=== PATIENT | female | born 1965 | race Caucasian/White ===

== ENCOUNTER → 2017-03-03 | Outpatient (CLI) | payer BC ==
--- NOTE | 2017-03-03 18:16 | RADIOLOGY REPORT (SQ) ---
EXAM DESCRIPTION: CHEST PA/LAT COMPLETED DATE/TIME: 03/03/2017 6:05 pm REASON FOR STUDY: Hypo-osmolality and hyponatremia COMPARISON: None. EXAM PARAMETERS: NUMBER OF VIEWS: two views TECHNIQUE: Digital Frontal and Lateral radiographic views of the chest acquired. RADIATION DOSE: NA LIMITATIONS: none FINDINGS: LUNGS AND PLEURA: Opacity and volume loss in the right upper lobe. Left lung clear. MEDIASTINUM AND HILAR STRUCTURES: Right hilar mass and right paratracheal adenopathy. HEART AND VASCULAR STRUCTURES: Heart normal size. No evidence for failure. BONES: No acute findings. HARDWARE: None in the chest. OTHER: No other significant finding. IMPRESSION: Right hilar mass with right paratracheal adenopathy. Obstructive pneumonia in the right upper lobe. TECHNICAL DOCUMENTATION: JOB ID: [id number] [employer]- All Rights Reserved
== END ==
LOC: RAD 17:46
PROVIDERS: ATTEND Physician Assistant
DX: E87.1 Hypo-osmolality and hyponatremia (principal); J18.9 Pneumonia, unspecified organism
CPT/HCPCS: 71020

== ENCOUNTER → 2017-03-04 | Outpatient (CLI) | payer BC ==
[2017-03-04 09:05] LABS: ALANINE AMINOTRANSFERASE 30 U/L (9-52); ALBUMIN 3.9 g/dL (3.5-5.0); ALKALINE PHOSPHATASE 92 U/L (38-126); ANION GAP 13 (5-19); ASPARTATE AMINO TRANSFERASE 17 U/L (14-36); BILIRUBIN,DIRECT 0.3 mg/dL (0.0-0.4); BILIRUBIN,TOTAL 0.7 mg/dL (0.2-1.3); BLOOD UREA NITROGEN 5 mg/dL (7-20); CALCIUM 9.2 mg/dL (8.4-10.2); CARBON DIOXIDE 26 mmol/L (22-30); CHLORIDE 95 mmol/L (98-107); CREATININE RESULT 0.55 mg/dL (0.52-1.25); GLUCOSE 90 mg/dL (75-110); POTASSIUM 3.9 mmol/L (3.6-5.0); TOTAL PROTEIN 6.4 g/dL (6.3-8.2)
== END ==
LOC: LAB 08:10
PROVIDERS: ATTEND Physician Assistant
DX: E87.1 Hypo-osmolality and hyponatremia (principal)
CPT/HCPCS: 36415; 80053; 82533; 84443

== ENCOUNTER → 2017-03-07 | Outpatient (CLI) | payer BC ==
--- NOTE | 2017-03-07 16:07 | RADIOLOGY REPORT (SQ) ---
EXAM DESCRIPTION: CT CHEST WITH COMPLETED DATE/TIME: 03/07/2017 3:40 pm REASON FOR STUDY: R91.8 OTHER NONSPECIFIC ABNORMAL FINDING OF LUNG FIELD R91.8 OTHER NONSPECIFIC AB NORMAL FINDING OF LUNG FIELD COMPARISON: None. TECHNIQUE: CT scan of the chest performed using helical scanning technique with dynamic intravenous contrast injection. Images reviewed with lung, soft tissue and bone windows. Reconstructed coronal and sagittal MPR images reviewed. All images stored on PACS. All CT scanners at this facility use dose modulation, iterative reconstruction, and/or weight based d osing when appropriate to reduce radiation dose to as low as reasonably achievable (ALARA). [facility]: Dose Right [facility]: CareDose [facility]: Dose Right [facility]: Teradose 4D [facility]: [employer] CONTRAST TYPE AND DOSE: contrast/concentration: Isovue 370.00 mg/ml; Total Contrast Delivered: 80.0 ml; Total Saline Delivered: 55.0 ml RENAL FUNCTION: GFR > 60. RADIATION DOSE: Up-to-date CT equipment and radiation dose reduction techniques were employed. CTDIv ol: 5.5 mGy. DLP: 213 mGy-cm. . LIMITATIONS: None. FINDINGS: LUNGS AND PLEURA: Partial collapse of the right upper lobe associated with the right hilar mass. 1.4 cm pleural-based partially solid nodule in the middle lobe abutting the major fissure. S mall right pleural effusion volume estimated less than 500 cc. No nodules in the left lung. HILAR AND MEDIASTINAL STRUCTURES: Right hilar mass encasing the superior vena cava and 1st degree bra nch of right upper lobe pulmonary artery measuring about 6.7 x 4.9 cm in AP by transverse diameter. Subcarinal adenopathy measuring approximately 2.7 x 3.2 cm. Mildly enlarged station 2 and station 4 paratracheal nodes. HEART AND VASCULAR STRUCTURES: No aneurysm or dissection. No central pulmonary emboli. No pericardi al effusion. HARDWARE: None in the chest. UPPER ABDOMEN: At least 2 lesions in the liver suspicious for metastatic disease, the largest in the left lobe measuring about 3 cm. Margins are indistinct. THYROID AND OTHER SOFT TISSUES: No masses. No adenopathy. BONES: Scattered lytic lesions in the lower thoracic spine. No pathologic fracture. OTHER: Breast implants. IMPRESSION: Primary right hilar mass encasing the superior vena cava. Satellite nodule in the middl e lobe. Liver and bone metastasis. TECHNICAL DOCUMENTATION: JOB ID: [id number] Quality ID # [id number]: Final reports with documentation of one or more dose reduction techniques (e.g., Au tomated exposure control, adjustment of the mA and/or kV according to patient size, use of iterative reconstruction technique) 2010 [employer]- All Rights Reserved
== END ==
LOC: RAD 14:35
PROVIDERS: ATTEND Physician Assistant
DX: R91.8 Other nonspecific abnormal finding of lung field (principal)
CPT/HCPCS: 71260

== ENCOUNTER → 2017-03-16 | Outpatient (CLI) | payer BC ==
--- NOTE | 2017-03-17 12:35 | RADIOLOGY REPORT (SQ) ---
EXAM DESCRIPTION: PET CT SKULL/THIGH COMPLETED DATE/TIME: 03/16/2017 8:32 pm REASON FOR STUDY: LUNG CANCER C34.11 MALIGNANT NEOPLASM OF UPPER LOBE, RIGHT BRONCHUS OR L COMPARISON: CT chest 03/07/2017 RADIONUCLIDE AND DOSE: 11.4 mCi F18 FDG The route of agent administration: Intravenous FASTING BLOOD SUGAR: 104 mg/dl CONTRAST TYPE AND DOSE: No CT contrast given. TECHNIQUE: Blood glucose level was verified. Above dose of FDG was injected intravenously. 2-D seg mented attenuation correction images were obtained from the base of the skull to the midthighs. Nonc ontrast CT images were obtained for attenuation correction and fusion with emission images. CT image s were performed without oral or intravenous contrast and are not sensitive for parenchymal lesions. A series of overlapping emission PET images were obtained. Images reviewed and manipulated at [facility] work station by the radiologist. Images stored on PACS. LIMITATIONS: None. FINDINGS: HEAD AND NECK: No areas of abnormal metabolic activity in the soft tissues of the head and neck. CHEST: A right hilar mass is present, causing postobstructive change in the right upper lobe with vol ume loss and consolidation. On today's study, the mass measures about 7 cm AP x 5.3 cm transverse on axial image 79, with SUV of 8.2. There is occlusion of the right apical posterior segmental bronchu s. The prior CT chest with contrast demonstrates greater than 75% narrowing in the superior vena cav a. There is mediastinal adenopathy as follows: 2.7 x 2 cm right paratracheal lymph node SUV 7.0 1.9 x 1.4 cm right peritracheal lymph node SUV 7.7 Sub- carinal lymph node 3.5 x 2.5 cm in size SUV 9.6. There is a small moderate right pleural effusion which is similar in size compared to 03/07/2017. No hypermetabolic pleural deposits are identified today. ABDOMEN AND PELVIS: Multiple liver lesions are present worrisome for metastatic disease as follows: 1.5 cm left lobe liver subdiaphragmatic nodule image 107, SUV 5.4 3 cm left lobe liver mass anteriorly image 129, SUV 9.7 2 cm caudate lobe nodule axial image 130, SUV 7.0 PROXIMAL LOWER EXTREMITIES: No areas of abnormal metabolic activity in the soft tissues of the lower extremities. BONES: Extensive skeletal metastatic involvement throughout the cervicothoracic and lumbar spine, pel vis, sternum, and proximal long bones in the field of view. Index lesions are as follows: Right proximal humeral metaphysis SUV 4.3 Left proximal humeral diaphysis SUV 6 T11 vertebral body SUV 6.2 L4 vertebral body SUV 6.7 Left sacral ala SUV 6.4 Right femoral intertrochanteric region SUV 6.0 Left femoral intertrochanteric region SUV 7.8. ADDITIONAL CT FINDINGS: Bilateral breast implants. 3 cm cyst left lower pole kidney. OTHER: No other significant findings. IMPRESSION: Large lung primary mass involving the right hilum, with metastatic disease as above TECHNICAL DOCUMENTATION: JOB ID: [id number] [employer]- All Rights Reserved
== END ==
LOC: RAD 17:05
PROVIDERS: ATTEND Internal Medicine
DX: C34.11 Malignant neoplasm of upper lobe, right bronchus or lung (principal); C79.51 Secondary malignant neoplasm of bone
CPT/HCPCS: 78815; A9552

== ENCOUNTER 2017-04-01 12:42 | Outpatient (CLI) | payer BC ==
[2017-04-01 13:18] VITALS: BP 102/59
[2017-04-01] MEDS ORDERED: NORMAL SALINE 1000 ML 1,000 ML IV PRN (13:26)
== END 2017-04-01 14:20 | disposition home or self-care (01) ==
LOC: II 12:42 → 5TH 12:47 → II 14:20
PROVIDERS: ATTEND Internal Medicine
PROC: 3E0337Z Introduction of Electrolytic and Water Balance Substance into Peripheral Vein, Percutaneous Approach (ICD-10-PCS; principal; 2017-04-01)
DX: E86.0 Dehydration (principal); C34.11 Malignant neoplasm of upper lobe, right bronchus or lung
CPT/HCPCS: 96360

== ENCOUNTER 2017-04-04 12:12 | Outpatient (CLI) | payer BC ==
[~2017-04-04 12:12] MED LIST: NORMAL SALINE 1000 ML 1,000 ML IV PRN; ONDANSETRON HCL INJ/PF 4 MG/2 ML SDV IV PRN
[2017-04-04 13:49] VITALS: BP 107/62
== END 2017-04-04 13:53 | disposition home or self-care (01) ==
LOC: II 12:12 → 5TH 13:00 → II 13:53
PROVIDERS: ATTEND Internal Medicine
PROC: 3E0337Z Introduction of Electrolytic and Water Balance Substance into Peripheral Vein, Percutaneous Approach (ICD-10-PCS; principal; 2017-04-04)
PROC: 3E033GC Introduction of Other Therapeutic Substance into Peripheral Vein, Percutaneous Approach (ICD-10-PCS; 2017-04-04)
DX: E86.0 Dehydration (principal); R11.2 Nausea with vomiting, unspecified
CPT/HCPCS: 96375; 96360; J2405; 96361; 96374

== ENCOUNTER 2017-04-28 11:34 | Outpatient (CLI) | payer BC ==
[2017-04-28 11:54] VITALS: BP 104/59
[2017-04-28] MEDS ORDERED: NORMAL SALINE 1000 ML 1,000 ML IV ONE (14:00)
== END 2017-04-28 13:19 | disposition home or self-care (01) ==
LOC: II 11:34 → 2N 11:38 → II 13:19
PROVIDERS: ATTEND Internal Medicine
DX: E86.1 Hypovolemia (principal); C34.11 Malignant neoplasm of upper lobe, right bronchus or lung

== ENCOUNTER 2017-04-29 14:01 | Outpatient (CLI) | payer BC ==
[~2017-04-29 14:01] MED LIST changes: -ONDANSETRON HCL INJ/PF 4 MG/2 ML SDV IV PRN
[2017-04-29 14:30] VITALS: BP 98/60
== END 2017-04-29 15:30 | disposition home or self-care (01) ==
LOC: II 14:01 → 5TH 14:27 → II 15:30
PROVIDERS: ATTEND Internal Medicine
PROC: 3E0337Z Introduction of Electrolytic and Water Balance Substance into Peripheral Vein, Percutaneous Approach (ICD-10-PCS; principal; 2017-04-29)
DX: E86.1 Hypovolemia (principal); C34.11 Malignant neoplasm of upper lobe, right bronchus or lung
CPT/HCPCS: 96360

== ENCOUNTER 2017-04-30 10:25 | Outpatient (CLI) | payer BC ==
[~2017-04-30 10:25] MED LIST changes: +CARBOPLATIN IV PRN; +ETOPOSIDE IV PRN; -NORMAL SALINE 1000 ML 1,000 ML IV PRN; +NORMAL SALINE 250 ML IV PRN; +NORMAL SALINE IV PRN; +ONDANSETRON HCL/PF 16 MG, DEXAMETHASONE SOD PHOSPHATE 10 MG in NORMAL SALINE 50 ML IV PRN
[2017-04-30 11:07] VITALS: BP 92/59
== END 2017-04-30 14:29 | disposition home or self-care (01) ==
LOC: II 10:25 → 5TH 10:29 → II 14:29
PROVIDERS: ATTEND Internal Medicine
PROC: 3E03305 Introduction of Other Antineoplastic into Peripheral Vein, Percutaneous Approach (ICD-10-PCS; principal; 2017-04-30)
PROC: 3E033GC Introduction of Other Therapeutic Substance into Peripheral Vein, Percutaneous Approach (ICD-10-PCS; 2017-04-30)
DX: Z51.11 Encounter for antineoplastic chemotherapy (principal); C34.11 Malignant neoplasm of upper lobe, right bronchus or lung
CPT/HCPCS: 96413; 96415; 96367; J9045 ×2; J9181; J2405; J7050; J7040; J1100; 96417

== ENCOUNTER 2017-05-01 08:55 | Outpatient (CLI) | payer BC ==
[~2017-05-01 08:55] MED LIST changes: -CARBOPLATIN IV PRN; +PROMETHAZINE HCL INJ 25 MG/1 ML VIAL IV PRN
[2017-05-01] MEDS ORDERED: NORMAL SALINE 1000 ML 1,000 ML IV PRN (09:11)
[2017-05-01 11:58] VITALS: BP 103/60
== END 2017-05-01 12:50 | disposition home or self-care (01) ==
LOC: II 08:55 → 5TH 09:03 → II 12:50
PROVIDERS: ATTEND Internal Medicine
PROC: 3E03305 Introduction of Other Antineoplastic into Peripheral Vein, Percutaneous Approach (ICD-10-PCS; principal; 2017-05-01)
PROC: 3E033GC Introduction of Other Therapeutic Substance into Peripheral Vein, Percutaneous Approach (ICD-10-PCS; 2017-05-01)
DX: Z51.11 Encounter for antineoplastic chemotherapy (principal); C34.11 Malignant neoplasm of upper lobe, right bronchus or lung
CPT/HCPCS: 96413; 96367; 96375; 96360; J9181; J2550; J2405; J7040; J1100; 96361

== ENCOUNTER 2017-05-02 08:52 | Outpatient (CLI) | payer BC ==
[~2017-05-02 08:52] MED LIST changes: +NORMAL SALINE 1000 ML 1,000 ML IV PRN
[2017-05-02 09:55] VITALS: BP 101/65
== END 2017-05-02 13:14 | disposition home or self-care (01) ==
LOC: II 08:52 → 5TH 08:56 → II 13:14
PROVIDERS: ATTEND Internal Medicine
PROC: 3E03305 Introduction of Other Antineoplastic into Peripheral Vein, Percutaneous Approach (ICD-10-PCS; principal; 2017-05-02)
PROC: 3E033GC Introduction of Other Therapeutic Substance into Peripheral Vein, Percutaneous Approach (ICD-10-PCS; 2017-05-02)
DX: Z51.11 Encounter for antineoplastic chemotherapy (principal); C34.11 Malignant neoplasm of upper lobe, right bronchus or lung
CPT/HCPCS: 96413; 96367; 96360; J9181; J2550; J2405; J7040; J1100

== ENCOUNTER 2017-05-07 11:42 | Outpatient (CLI) | payer BC ==
[~2017-05-07 11:42] MED LIST changes: -ETOPOSIDE IV PRN; -NORMAL SALINE 250 ML IV PRN; -NORMAL SALINE IV PRN; -ONDANSETRON HCL/PF 16 MG, DEXAMETHASONE SOD PHOSPHATE 10 MG in NORMAL SALINE 50 ML IV PRN; -PROMETHAZINE HCL INJ 25 MG/1 ML VIAL IV PRN
[2017-05-07 13:13] VITALS: BP 90/50
== END 2017-05-07 13:59 | disposition home or self-care (01) ==
LOC: II 11:42 → 5TH 11:46 → II 13:59
PROVIDERS: ATTEND Internal Medicine
PROC: 3E0337Z Introduction of Electrolytic and Water Balance Substance into Peripheral Vein, Percutaneous Approach (ICD-10-PCS; principal; 2017-05-07)
DX: E86.1 Hypovolemia (principal); C34.11 Malignant neoplasm of upper lobe, right bronchus or lung
CPT/HCPCS: 96360

== ENCOUNTER 2017-05-14 09:53 | Outpatient (CLI) | payer BC ==
[2017-05-14 10:27] VITALS: BP 107/52
== END 2017-05-14 11:32 | disposition home or self-care (01) ==
LOC: 5TH 09:53 → II 09:53
PROVIDERS: ATTEND Internal Medicine
PROC: 3E0337Z Introduction of Electrolytic and Water Balance Substance into Peripheral Vein, Percutaneous Approach (ICD-10-PCS; principal; 2017-05-14)
DX: E86.1 Hypovolemia (principal); C34.11 Malignant neoplasm of upper lobe, right bronchus or lung
CPT/HCPCS: 96360

== ENCOUNTER → 2017-05-20 | Outpatient (CLI) | payer BC ==
--- NOTE | 2017-05-20 16:10 | RADIOLOGY REPORT (SQ) ---
EXAM DESCRIPTION: CT CHEST WITH COMPLETED DATE/TIME: 05/20/2017 11:03 am REASON FOR STUDY: LUNG CA C34.11 MALIGNANT NEOPLASM OF UPPER LOBE, RIGHT BRONCHUS OR L COMPARISON: 03/07/2017 TECHNIQUE: CT scan of the chest performed using helical scanning technique with dynamic intravenous contrast injection. Images reviewed with lung, soft tissue and bone windows. Reconstructed coronal and sagittal MPR images reviewed. All images stored on PACS. All CT scanners at this facility use dose modulation, iterative reconstruction, and/or weight based d osing when appropriate to reduce radiation dose to as low as reasonably achievable (ALARA). [facility]: Dose Right [facility]: CareDose [facility]: Dose Right [facility]: Teradose 4D [facility]: [employer] CONTRAST TYPE AND DOSE: See separate report. RENAL FUNCTION: See separate report. RADIATION DOSE: . LIMITATIONS: None. FINDINGS: LUNGS AND PLEURA: Right upper lobe/hilar mass encasing the right mainstem bronchus, SVC, a nd pulmonary artery has decreased in size from 8.9 x 12.0 cm to 7.4 x 6.0 cm. There is residual airs pace disease in the remainder of the right upper lobe in the medial segment of the middle lobe. No e ffusions. Left lung is clear. HILAR AND MEDIASTINAL STRUCTURES: See above. Station 7 node 1.6 x 2.5 cm, previously 2.7 x 3.2 cm. HEART AND VASCULAR STRUCTURES: No aneurysm or dissection. No central pulmonary emboli. No pericardi al effusion. HARDWARE: None in the chest. UPPER ABDOMEN: See separate report of the CT of the abdomen. THYROID AND OTHER SOFT TISSUES: Breast implants. BONES: Bone metastasis. There is depression of the superior endplate of T11 less than 20% height los s. OTHER: No other significant finding. IMPRESSION: 1. Decrease in size of right upper lobe/hilar mass. Decrease in adenopathy. 2. Bone metastasis. TECHNICAL DOCUMENTATION: JOB ID: [id number] Quality ID # 436: Final reports with documentation of one or more dose reduction techniques (e.g., Au tomated exposure control, adjustment of the mA and/or kV according to patient size, use of iterative reconstruction technique) 2010 [employer]- All Rights Reserved
--- NOTE | 2017-05-20 16:15 | RADIOLOGY REPORT (SQ) ---
EXAM DESCRIPTION: CT ABD/PELVIS WITH IV ONLY COMPLETED DATE/TIME: 05/20/2017 11:03 am REASON FOR STUDY: LUNG CA C34.11 MALIGNANT NEOPLASM OF UPPER LOBE, RIGHT BRONCHUS OR L COMPARISON: None. TECHNIQUE: CT scan of the abdomen and pelvis performed using helical scanning technique with dynamic intravenous contrast injection. No oral contrast. Images reviewed with lung, soft tissue, and bone windows. Reconstructed coronal and sagittal MPR images reviewed. Delayed images for evaluation of the urinary system also acquired. All images stored on PACS. All CT scanners at this facility use dose modulation, iterative reconstruction, and/or weight based d osing when appropriate to reduce radiation dose to as low as reasonably achievable (ALARA). [facility]: Dose Right [facility]: CareDose [facility]: Dose Right [facility]: Teradose 4D [facility]: [facility] CONTRAST TYPE AND DOSE: contrast/concentration: Isovue 370.00 mg/ml; Total Contrast Delivered: 58.0 ml; Total Saline Delivered: 65.0 ml RENAL FUNCTION: BUN 4 creatinine 0.5 RADIATION DOSE: CT Rad equipment meets quality standard of care and radiation dose reduction techniq ues were employed. CTDIvol: 4.4 - 4.5 mGy. DLP: 591 mGy-cm.. LIMITATIONS: None. FINDINGS: LOWER CHEST: See separate report of the CT of the chest. LIVER: Several metastatic lesions in the liver, grossly unchanged when correlated with the PET-CT . 1 of the larger lesions segment 4B measuring 3.3 cm maximum diameter, subcapsular. SPLEEN: Normal size. No focal lesions. PANCREAS: No masses. No significant calcifications. No adjacent inflammation or peripancreatic fluid collections. Pancreatic duct not dilated. GALLBLADDER: No identified stones by CT criteria. No inflammatory changes to suggest cholecystitis. ADRENAL GLANDS: No significant masses or asymmetry. RIGHT KIDNEY AND URETER: No solid masses. No significant calcifications. No hydronephrosis or hyd roureter. LEFT KIDNEY AND URETER: No solid masses. No significant calcifications. No hydronephrosis or hydr oureter. AORTA AND VESSELS: No aneurysm. No dissection. Renal arteries, SMA, celiac without stenosis. RETROPERITONEUM: No retroperitoneal adenopathy, hemorrhage or masses. BOWEL AND PERITONEAL CAVITY: No masses or inflammatory changes. No free fluid or peritoneal masses. APPENDIX: Not visualized. PELVIS: No mass. No free fluid. Normal bladder. ABDOMINAL WALL: No masses. No hernias. BONES: Diffuse sclerotic and lytic bone metastasis. OTHER: No other significant finding. IMPRESSION: Bone and liver metastasis. Overall stable from recent PET. TECHNICAL DOCUMENTATION: JOB ID: [id number] Quality ID # 436: Final reports with documentation of one or more dose reduction techniques (e.g., Au tomated exposure control, adjustment of the mA and/or kV according to patient size, use of iterative reconstruction technique) 2010 [employer] All Rights Reserved
== END ==
LOC: RAD 09:45
PROVIDERS: ATTEND Internal Medicine
DX: C34.11 Malignant neoplasm of upper lobe, right bronchus or lung (principal); C79.51 Secondary malignant neoplasm of bone; C78.7 Secondary malignant neoplasm of liver and intrahepatic bile duct
CPT/HCPCS: 71260; 74177

== ENCOUNTER 2017-05-21 08:06 | Outpatient (CLI) | payer BC ==
[2017-05-21] MEDS ORDERED: ONDANSETRON HCL INJ/PF 4 MG/2 ML SDV IV PRN (08:27)
[2017-05-21 09:35] VITALS: BP 100/50
== END 2017-05-21 09:35 | disposition home or self-care (01) ==
LOC: II 08:06 → 5TH 08:07 → II 09:35
PROVIDERS: ATTEND Internal Medicine
PROC: 3E033GC Introduction of Other Therapeutic Substance into Peripheral Vein, Percutaneous Approach (ICD-10-PCS; principal; 2017-05-21)
PROC: 3E0337Z Introduction of Electrolytic and Water Balance Substance into Peripheral Vein, Percutaneous Approach (ICD-10-PCS; 2017-05-21)
DX: E86.1 Hypovolemia (principal); C34.11 Malignant neoplasm of upper lobe, right bronchus or lung; R11.2 Nausea with vomiting, unspecified
CPT/HCPCS: 96374; 96360; J2405; 96361; 96365

== ENCOUNTER 2017-06-05 08:04 | Outpatient (CLI) | payer BC ==
[2017-06-05] MEDS ORDERED: PROMETHAZINE HCL INJ 25 MG/1 ML VIAL IV PRN (08:29)
[2017-06-05] MEDS ORDERED: ONDANSETRON HCL INJ/PF 4 MG/2 ML SDV IV PRN (08:29)
[2017-06-05] MEDS: NORMAL SALINE 1000 ML 1,000 ML IV PRN ×2 (08:38→10:00)
[2017-06-05 08:43] VITALS: BP 104/57
== END 2017-06-05 11:28 | disposition home or self-care (01) ==
LOC: II 08:04 → 5TH 08:11 → II 11:28
PROVIDERS: ATTEND Internal Medicine
PROC: 3E0337Z Introduction of Electrolytic and Water Balance Substance into Peripheral Vein, Percutaneous Approach (ICD-10-PCS; principal; 2017-06-05)
PROC: 3E033GC Introduction of Other Therapeutic Substance into Peripheral Vein, Percutaneous Approach (ICD-10-PCS; 2017-06-05)
DX: E86.1 Hypovolemia (principal); C34.11 Malignant neoplasm of upper lobe, right bronchus or lung
CPT/HCPCS: J2550; J2405; 96361; 96374

== ENCOUNTER 2017-06-12 11:57 | Outpatient (CLI) | payer BC ==
[2017-06-12 12:46] VITALS: BP 90/50
== END 2017-06-12 13:40 | disposition home or self-care (01) ==
LOC: II 11:57 → 5TH 12:52 → II 13:40
PROVIDERS: ATTEND Internal Medicine
PROC: 3E0337Z Introduction of Electrolytic and Water Balance Substance into Peripheral Vein, Percutaneous Approach (ICD-10-PCS; principal; 2017-06-12)
DX: E86.1 Hypovolemia (principal); C34.11 Malignant neoplasm of upper lobe, right bronchus or lung
CPT/HCPCS: 96360

== ENCOUNTER 2017-06-18 08:39 | Outpatient (CLI) | payer BC ==
[2017-06-18] MEDS ORDERED: ONDANSETRON HCL INJ/PF 4 MG/2 ML SDV IV PRN (09:04)
[2017-06-18 10:29] VITALS: BP 98/50
== END 2017-06-18 10:29 | disposition home or self-care (01) ==
LOC: II 08:39 → 5TH 08:50 → II 10:29
PROVIDERS: ATTEND Internal Medicine
PROC: 3E0337Z Introduction of Electrolytic and Water Balance Substance into Peripheral Vein, Percutaneous Approach (ICD-10-PCS; principal; 2017-06-18)
PROC: 3E033GC Introduction of Other Therapeutic Substance into Peripheral Vein, Percutaneous Approach (ICD-10-PCS; 2017-06-18)
DX: E86.1 Hypovolemia (principal); R11.2 Nausea with vomiting, unspecified; C34.11 Malignant neoplasm of upper lobe, right bronchus or lung
CPT/HCPCS: 96374; 96360; J2405; 96361

== ENCOUNTER 2017-06-24 10:24 | Outpatient (CLI) | payer BC ==
[2017-06-24] MEDS ORDERED: NORMAL SALINE 1000 ML 1,000 ML IV PRN (10:47)
[2017-06-24] MEDS ORDERED: ONDANSETRON HCL INJ/PF 4 MG/2 ML SDV IV PRN (10:48)
[2017-06-24] MEDS ORDERED: ONDANSETRON HCL INJ/PF 4 MG/2 ML SDV ONE (10:52)
[2017-06-24 12:04] VITALS: BP 104/61
== END 2017-06-24 12:05 | disposition home or self-care (01) ==
LOC: II 10:24 → 5TH 10:31 → II 12:05
PROVIDERS: ATTEND Internal Medicine
PROC: 3E0337Z Introduction of Electrolytic and Water Balance Substance into Peripheral Vein, Percutaneous Approach (ICD-10-PCS; principal; 2017-06-24)
PROC: 3E033GC Introduction of Other Therapeutic Substance into Peripheral Vein, Percutaneous Approach (ICD-10-PCS; 2017-06-24)
DX: E86.0 Dehydration (principal); C34.11 Malignant neoplasm of upper lobe, right bronchus or lung; R11.2 Nausea with vomiting, unspecified
CPT/HCPCS: 96374; 96375; 96360; J2405; 96361

== ENCOUNTER 2017-07-03 10:57 | Outpatient (CLI) | payer BC ==
[~2017-07-03 10:57] MED LIST changes: +ONDANSETRON HCL INJ/PF 4 MG/2 ML SDV IV PRN
[2017-07-03 11:28] VITALS: BP 99/50
== END 2017-07-03 12:13 | disposition home or self-care (01) ==
LOC: II 10:57 → 5TH 11:01 → II 12:13
PROVIDERS: ATTEND Internal Medicine
PROC: 3E0337Z Introduction of Electrolytic and Water Balance Substance into Peripheral Vein, Percutaneous Approach (ICD-10-PCS; principal; 2017-07-03)
PROC: 3E033GC Introduction of Other Therapeutic Substance into Peripheral Vein, Percutaneous Approach (ICD-10-PCS; 2017-07-03)
DX: C34.11 Malignant neoplasm of upper lobe, right bronchus or lung (principal); E86.0 Dehydration; R11.2 Nausea with vomiting, unspecified
CPT/HCPCS: 96374; 96360; J2405; 96361

== ENCOUNTER 2017-07-08 08:01 | Outpatient (CLI) | payer BC ==
[2017-07-08 08:20] VITALS: BP 99/53
[2017-07-08] MEDS ORDERED: NORMAL SALINE 1000 ML 1,000 ML IV PRN (08:21)
[2017-07-08] MEDS ORDERED: ONDANSETRON HCL INJ/PF 4 MG/2 ML SDV IV PRN (08:22)
== END 2017-07-08 09:21 | disposition home or self-care (01) ==
LOC: II 08:01 → 5TH 08:04 → II 09:21
PROVIDERS: ATTEND Internal Medicine
PROC: 3E033GC Introduction of Other Therapeutic Substance into Peripheral Vein, Percutaneous Approach (ICD-10-PCS; principal; 2017-07-08)
PROC: 3E0337Z Introduction of Electrolytic and Water Balance Substance into Peripheral Vein, Percutaneous Approach (ICD-10-PCS; 2017-07-08)
DX: E86.0 Dehydration (principal); C34.11 Malignant neoplasm of upper lobe, right bronchus or lung; R11.2 Nausea with vomiting, unspecified
CPT/HCPCS: 96374; 96360; J2405; 96361

== ENCOUNTER 2017-07-15 08:05 | Outpatient (CLI) | payer BC ==
[2017-07-15 09:24] VITALS: BP 102/40
== END 2017-07-15 09:49 | disposition home or self-care (01) ==
LOC: II 08:05 → 5TH 08:07 → II 09:49
PROVIDERS: ATTEND Internal Medicine
PROC: 3E0337Z Introduction of Electrolytic and Water Balance Substance into Peripheral Vein, Percutaneous Approach (ICD-10-PCS; principal; 2017-07-15)
PROC: 3E033GC Introduction of Other Therapeutic Substance into Peripheral Vein, Percutaneous Approach (ICD-10-PCS; 2017-07-15)
DX: E86.1 Hypovolemia (principal); C34.11 Malignant neoplasm of upper lobe, right bronchus or lung
CPT/HCPCS: 96374; 96360; J2405; 96361

== ENCOUNTER → 2017-07-16 | Outpatient (CLI) | payer BC ==
--- NOTE | 2017-07-16 11:39 | RADIOLOGY REPORT (SQ) ---
EXAM DESCRIPTION: CT CHEST WITH; CT ABD/PELVIS WITH IV ONLY COMPLETED DATE/TIME: 07/16/2017 10:06 am; 07/16/2017 10:07 am REASON FOR STUDY: LUNG CA (C34.11) C34.11 MALIGNANT NEOPLASM OF UPPER LOBE, RIGHT BRONCHUS OR L COMPARISON: CT chest 03/07/2017 CT chest abdomen and pelvis 05/20/2017 PET-CT 03/16/2017 CONTRAST TYPE AND DOSE: contrast/concentration: Isovue 370.00 mg/ml; Total Contrast Delivered: 56.0 ml; Total Saline Delivered: 65.0 ml RENAL FUNCTION: Creatinine 0.4 TECHNIQUE: CT scan of the chest performed using helical scanning technique with dynamic intravenous contrast injection. Images reviewed with lung, soft tissue and bone windows. Reconstructed coronal a nd sagittal MPR images reviewed. All images stored on PACS. CT scan of the abdomen and pelvis performed with intravenous and without oral contrastusing helical s jordon technique with dynamic intravenous contrast injection. Images reviewed with lung, soft tissu e and bone windows. Reconstructed coronal and sagittal MPR images reviewed. Delayed images for eval uation of the urinary system also acquired and evaluated. All images stored on PACS. All CT scanners at this facility use dose modulation, iterative reconstruction, and/or weight based d osing when appropriate to reduce radiation dose to as low as reasonably achievable (ALARA). [facility]: Dose Right [facility]: CareDose [facility]: Dose Right [facility]: Teradose 4D [facility]: [employer] RADIATION DOSE: CT Rad equipment meets quality standard of care and radiation dose reduction techniq ues were employed. CTDIvol: 4.4 - 4.5 mGy. DLP: 611 mGy-cm. . LIMITATIONS: None. FINDINGS: CHEST: LUNGS AND PLEURA: Again, there is a right hilar mass with obstruction of the right upper lobe bronchu s and a dense consolidation/tumor along the medial right upper lobe. Measurable mass is 7.2 cm AP x 3.5 cm transverse, similar compared to 05/20/2017 where it measured about 7.4 x 6 cm in size. There is occlusion of the right upper lobe bronchus and less than 50% narrowing of the superior vena cava at the level of tumor on axial images 21-33. There is diffuse right-sided mild pleural thickening/ trace pleural fluid present. HILAR AND MEDIASTINAL STRUCTURES: Persistent sub- carinal mass likely adenopathy 3 x 2.5 cm in size, larger than on previous exams. HEART AND VASCULAR STRUCTURES: No aneurysm or dissection. No central pulmonary emboli. No pericardi al effusion. HARDWARE: None. THYROID AND OTHER SOFT TISSUES: 1 cm nodule left lower pole thyroid of doubtful clinical significance BONES: Diffuse bony sclerotic metastatic disease throughout the ribs and thoracic spine. Sternum dif fusely involved. No thoracic compression deformities. OTHER: Bilateral breast implants. ABDOMEN AND PELVIS: LIVER: There are now multiple liver metastatic lesions as follows: 1.8 cm sub- diaphragmatic surface left lobe liver axial image 13 1.7 cm left lobe liver image 16 1.6 cm left lobe liver image 18 2.7 cm left lobe liver anteriorly on image 26 2.7 cm right lobe liver image 29 SPLEEN: Normal size. No focal lesions. PANCREAS: No masses. No significant calcifications. No adjacent inflammation or peripancreatic fluid collections. Pancreatic duct not dilated. GALLBLADDER: No identified stones by CT criteria. No inflammatory changes to suggest cholecystitis. ADRENAL GLANDS: No significant masses or asymmetry. RIGHT KIDNEY AND URETER: No solid masses. No significant calcification. No hydronephrosis or hydroure ter. LEFT KIDNEY AND URETER: No solid masses. 3.2 cm left lower pole renal cortical cyst No significant c alcification. No hydronephrosis or hydroureter. AORTA AND VESSELS: No aneurysm. No dissection. Renal arteries, SMA, celiac without stenosis. RETROPERITONEUM: No retroperitoneal adenopathy, hemorrhage or masses. BOWEL AND PERITONEAL CAVITY: No masses or inflammatory changes. No free fluid or peritoneal masses. Large amount of stool throughout the colon APPENDIX: Normal. ABDOMINAL WALL: No masses. No hernias. PELVIS: No mass or free fluid. Normal bladder. Normal size female pelvic organs BONES: Diffuse bony sclerotic metastatic lesions throughout the lumbar spine and bony pelvis. No com pression deformity in the spine. OTHER: No other significant finding. IMPRESSION: Persistent mass along the right hilum and right upper lobe with narrowing of the upper l obe bronchus and mild narrowing of the superior vena cava. Overall size of the dominant mass is herman lar compared to 05/20/2017 Increase in size of sub- carinal lymph node Multiple new liver metastatic lesions Stable diffuse bony metastatic disease throughout the visualized skeleton TECHNICAL DOCUMENTATION: JOB ID: [id number] Quality ID # [id number]: Final reports with documentation of one or more dose reduction techniques (e.g., Au tomated exposure control, adjustment of the mA and/or kV according to patient size, use of iterative reconstruction technique) 2010 [employer]- All Rights Reserved Reading location - IP/workstation name: [email or web address]
== END ==
LOC: RAD 09:23
PROVIDERS: ATTEND Internal Medicine
DX: C34.11 Malignant neoplasm of upper lobe, right bronchus or lung (principal)
CPT/HCPCS: 71260; 74177

== ENCOUNTER 2017-07-18 12:27 | Emergency (ER) | payer BC ==
--- NOTE | 2017-07-18 13:00 | ER Document Report ---
ED Medical Screen (RME) - General Chief Complaint: Constipation Stated Complaint: DIFFICULTY PASSING BOWELS Time Seen by Provider: 07/18/17 12:45 Mode of Arrival: Ambulatory Information source: Patient Notes: 52-year-old female history of cancer stage IV lung received chemo presents with complaints of constipation. Patient notes she manually disimpact herself often however she has been unable to do so has been feeling weaker recently I have greeted and performed a rapid initial assessment of this patient. A comprehensive ED assessment and evaluation of the patient, analysis of test results and completion of the medical decision making process will be conducted by additional ED providers. PHYSICAL EXAMINATION: GENERAL: Frail elderly appearing female HEAD: Atraumatic, normocephalic. EYES: Pupils equal round extraocular movements intact, conjunctiva are normal. ENT: Nares patent NECK: Normal range of motion LUNGS: No respiratory distress Musculoskeletal: Normal range of motion NEUROLOGICAL: Normal speech, normal gait. PSYCH: Normal mood, normal affect. SKIN: Warm, Dry, normal turgor, no rashes or lesions noted. TRAVEL OUTSIDE OF THE [place] IN LAST 30 DAYS: No - Related Data Allergies/Adverse Reactions: Penicillins Allergy (Verified 07/18/17 12:38) Past Medical History - Social History Chew tobacco use (# tins/day): No Frequency of alcohol use: None Drug Abuse: None Pulmonary Medical History: Reports: Hx Pneumonia Renal/ Medical History: Denies: Hx Peritoneal Dialysis Past Surgical History: Reports: Hx Tubal Ligation - Immunizations History of Influenza Vaccine for 01/2017 - 06/2017 Season: Refused Physical Exam - Vital signs Vitals: Temp Pulse Resp BP Pulse Ox 97.8 F 92 16 94/59 L 99 07/18/17 12:36 07/18/17 12:36 07/18/17 12:36 07/18/17 12:36 07/18/17 12:36 Course - Vital Signs Vital signs: Temp Pulse Resp BP Pulse Ox 97.8 F 92 16 94/59 L 99 07/18/17 12:36 07/18/17 12:36 07/18/17 12:36 07/18/17 12:36 07/18/17 12:36
--- NOTE | 2017-07-18 13:34 | ER Document Report ---
ED GI/ - General Chief Complaint: Constipation Stated Complaint: DIFFICULTY PASSING BOWELS Time Seen by Provider: 07/18/17 12:45 Mode of Arrival: Ambulatory Notes: Patient says she has not had a bowel movement for the past 5 days. Patient has a diagnosis of stage IV small cell lung cancer and has been receiving chemotherapy since last fall. She is also on high doses of pain medications and has had problems with her bowel movements ever since February. They have been using many of the frequent anti-constipation medication such as mag citrate , mineral juice, MiraLAX, and enemas. Patient says that she occasionally gets to the point where she is not able to have a bowel movement even by trying manual extrication. She has had to get enemas in the emergency room previously. Has had a lot of vomiting and has trouble drinking liquids. [place] to be due to her chemotherapy. They have been told that the chemotherapy is no longer effective and that there is no point of receiving it anymore. She is going to start on immunotherapy soon. TRAVEL OUTSIDE OF THE [place] IN LAST 30 DAYS: No - Related Data Allergies/Adverse Reactions: Penicillins Allergy (Verified 07/18/17 12:38) Past Medical History - General Information source: Patient - Social History Smoking Status: Current Every Day Smoker Chew tobacco use (# tins/day): No Frequency of alcohol use: None Drug Abuse: None Family History: Reviewed & Not Pertinent Patient has suicidal ideation: No Patient has homicidal ideation: No Pulmonary Medical History: Reports: Hx Pneumonia Malignancy Medical History: Reports: Hx Lung Cancer Past Surgical History: Reports: Hx Hysterectomy, Hx Tubal Ligation Review of Systems - Review of Systems Notes: REVIEW OF SYSTEMS: CONSTITUTIONAL : Denies fever. EENT: Denies eye, ear, nose or mouth or throat pain or other symptoms. CARDIOVASCULAR: Denies chest pain. RESPIRATORY: Denies cough, chest congestion, or shortness of breath. GASTROINTESTINAL: Has diffuse, not localized abdominal pain. GENITOURINARY: Denies difficulty or painful urinating, urinary frequency, blood in urine. MUSCULOSKELETAL: Denies back or neck pain. Denies joint pain or swelling. SKIN: Denies rash or skin lesions. NEUROLOGICAL: Denies LOC or altered mental status. Denies headache. Denies sensory loss or motor deficits. ALL OTHER SYSTEMS REVIEWED AND NEGATIVE. Physical Exam - Vital signs Vitals: Temp Pulse Resp BP Pulse Ox 97.8 F 92 16 94/59 L 99 07/18/17 12:36 07/18/17 12:36 07/18/17 12:36 07/18/17 12:36 07/18/17 12:36 Interpretation: Normal, Hypotensive - Slightly low, but probably normal for her because she is of small stature. - Notes Notes: PHYSICAL EXAMINATION: GENERAL: Well-appearing, in no acute distress. Vital signs are all essentially normal. HEAD: Atraumatic, normocephalic. EYES: Pupils equal round and reactive to light, extraocular movements intact. ENT: oropharynx clear without exudates. Moist mucous membranes. NECK: Normal range of motion, supple. LUNGS: Breath sounds clear and equal bilaterally. HEART: Regular rate and rhythm without murmurs. ABDOMEN: Soft, only minimally tender diffusely. No guarding or rebound. No masses. No bruits heard. Rectal exam reveals no stool in the rectum. I cannot even palpate stool with a maximal ointment of the tip of my index finger in the distal colon. I certainly do not feel an impaction unless she has a high 1 that is beyond my reach. BACK: No tenderness throughout entire back. EXTREMITIES: Normal range of motion without pain. NEUROLOGICAL: Normal speech, normal gait. Normal sensory, motor, and reflex exams. Awake, alert, and oriented x3. Cranial nerves normal. PSYCH: Normal mood, normal affect. SKIN: Warm, dry, no rashes. Course - Re-evaluation Re-evalutation: 07/18/17 19:33 Labs show hyponatremia. Discussed with patient and and they know about this and it has been attributed to her cancer. Patient's x-ray shows what looks like constipation with some significant amount of air in the left upper quadrant. That is the location where the patient says she is experiencing her most discomfort. No evidence of bowel obstruction on these x-rays. 07/18/17 19:33 Patient was given a soapsuds enema mixed with mineral oil and did not get a lot of results. She was also given some other medications such as milk of magnesia and magnesium citrate. We attempted a second enema and patient got some better results, especially passing a large amount of gas which relieved a lot of her abdominal discomfort. I spent a good bit of time discussing with the and patient about preventing her from getting constipated in the future as well as how to treat constipation if it happens. - Vital Signs Vital signs: Temp Pulse Resp BP Pulse Ox 97.8 F 104 H 21 H 126/74 H 99 07/18/17 12:36 07/18/17 17:54 07/18/17 17:54 07/18/17 17:54 07/18/17 17:54 - Laboratory Result Diagrams: 07/18/17 14:20 07/18/17 14:20 Laboratory results interpreted by me: 07/18/17 07/18/17 14:20 14:20 RBC 3.35 L Hgb 10.1 L Hct 29.1 L RDW 21.9 H Sodium 123.2 L Chloride 88 L BUN 4 L Creatinine 0.34 L Calcium 7.9 L Total Protein 6.1 L Discharge - Discharge Clinical Impression: Constipation, Hyponatremia Condition: Stable Disposition: HOME, SELF-CARE Additional Instructions: CONSTIPATION: Constipation is a common problem. It is especially likely as you get older. Constipation is a common cause of abdominal pain, but sometimes causes no symptoms at all. Causes of constipation include certain medications, dehydration, diets, inactivity, and low-fiber intake. Rarely, it can be a symptom of underlying disease. The physician has evaluated you for this. Avoid constipation by eating a diet high in fiber, fruits, and vegetables. Drink plenty of liquids. Get regular exercise. If possible, avoid constipating medicines like narcotic pain medication. Some vitamin tablets can cause constipation. Stool softeners may be needed for difficult cases. An excellent stool softener is Konsyl which is available at [employer], and [employer] drug store. Just add a teaspoon to a glass of pineapple or orange juice daily or twice a day if needed. Laxatives are useful for occasional constipation. You should use them only when necessary. Too-frequent use can make your bowels dependent on them. Some over the counter laxatives available without prescription are: Milk of Magnesia, 1-2 tablespoons twice a day Dulcolax, 5 mg pill or 10 mg suppository. Citrate of Magnesia, 4-5 ounces a day for a day or two For acute constipation, Fleet's Enemas and Dulcolax suppositories are helpful. Chronic, termite inspector use of laxatives or enemas is not a good idea. Your bowel may become dependant on them. You do not need to have a bowel movement every day. Many people do fine with a bowel movement every three or four days. You should call your doctor or return for re-evaluation if you pass blood in the stool, or if you develop fever or increasing abdominal pain. BULK LAXATIVES: Bulk laxatives make the stool softer and bulkier. They're useful for preventing constipation. You can choose between psyllium, methylcellulose, and polycarbophil. They are available without a prescription. Psyllium brand names include Konsyl, Metamucil, Perdiem, Effer-Syllium and Hydrocil. It's available as powder, flavored drink powder, or chewable. The usual dose of psyllium powder is one heaping teaspoon in water each morning, increasing to twice a day if needed. [place] juice can disguise the slightly grainy texture. Methylcellulose is marketed as Citrucel and other brands. The average dose is two grams in a cup of water one to three times a day. Polycarbophil is marketed as Fiber-Con. Take two tablets with a cup of water one to three times a day. LAXATIVE: A laxative agent has been prescribed for your condition. This should result in passage of stool within 12 hours. Some mild intestinal cramping is common as the hard stool begins to move. You may have loose or runny stools for a short time. Contact your doctor if there is severe cramping, vomiting, or passage of blood. Return for further care if this medicine fails to improve your condition. Hyponatremia You have an abnormally low level of serum sodium, called hyponatremia. Low serum sodium may cause weakness, fatigue, confusion, or even seizures. Usually, low sodium is due to taking diuretics (water pills), combined with drinking too much water. It can also be due to excessive vomiting or diarrhea. If no obvious cause is evident, further evaluation will be necessary. If the hyponatremia results from taking diuretics, it's treated by restricting the amount of water you can drink. If it's due to vomiting and diarrhea, it's treated by drinking liberal amounts of rehydration solution (for example Lytren or Pedialyte). A follow-up blood test is often done to see that the sodium is returning to normal. Call the physician if you have severe weakness, muscle twitching or cramping, palpitations (pounding or irregular heartbeat), confusion, headache, seizures, or any other new or alarming symptoms. FOLLOW-UP CARE: If you have been referred to a physician for follow-up care, call the physician s office for an appointment as you were instructed or within the next two days. If you experience worsening or a significant change in your symptoms, notify the physician immediately or return to the Emergency Department at any time for re-evaluation. Referrals: DANIAL BRANNON MD [Primary Care Provider] - Follow up as needed
--- NOTE | 2017-07-18 13:47 | RADIOLOGY REPORT (SQ) ---
EXAM DESCRIPTION: KUB/ABDOMEN (SINGLE VIEW) COMPLETED DATE/TIME: 07/18/2017 1:16 pm REASON FOR STUDY: constipation COMPARISON: CT abdomen pelvis 07/16/2017, 05/20/2017 PET-CT 03/16/2017 NUMBER OF VIEWS: One view. TECHNIQUE: Supine radiographic image of the abdomen acquired. LIMITATIONS: None. FINDINGS: BOWEL GAS PATTERN: Large amount of stool throughout the colon. Stomach, small bowel decom pressed. CALCIFICATIONS: No suspicious calcifications. SOFT TISSUES: No gross mass or suggestion of organomegaly. HARDWARE: None in the abdomen. BONES: No acute fracture. No worrisome bone lesions. OTHER: No other significant finding. IMPRESSION: Constipation TECHNICAL DOCUMENTATION: JOB ID: [id number] [employer]- All Rights Reserved Reading location - IP/workstation name: [email or web address]
[2017-07-18] MEDS ORDERED: MAGNESIUM HYDROXIDE SUSP 30 ML UDCUP PO ONE ×2 (14:21→16:00)
[2017-07-18] MEDS ORDERED: MINERAL OIL ENEMA 133 ML PR ONE ×2 (14:24→16:19)
[2017-07-18] MEDS ORDERED: MAGNESIUM CITRATE 296 ML BOTTLE PO ONE (14:25)
[2017-07-18 14:34] LABS: ABSOLUTE LYMPHOCYTES (AUTO) 1.2 10^3/uL (0.5-4.7); ABSOLUTE MONOCYTES (AUTO) 0.6 10^3/uL (0.1-1.4); ABSOLUTE NEUT (AUTO) 3.2 10^3/uL (1.7-8.2); BASOPHILS % (AUTO) 0.4 % (0-2); EOSINOPHILS % (AUTO) 0.2 % (0-6); HEMATOCRIT 29.1 % (36.0-47.0); HEMOGLOBIN 10.1 g/dL (12.0-15.5); LYMPHOCYTES % (AUTO) 24.1 % (13-45); MEAN CORPUSCULAR HEMOGLOBIN 30.1 pg (27.0-33.4); MEAN CORPUSCULAR HGB CONC 34.7 g/dL (32.0-36.0); MEAN CORPUSCULAR VOLUME 87 fl (80-97); MONOCYTES % (AUTO) 12.4 % (3-13); PLATELET COUNT 250 10^3/uL (150-450); RED BLOOD COUNT 3.35 10^6/uL (3.72-5.28); RED CELL DISTRIBUTION WIDTH 21.9 % (11.5-14.0); SEGMENTED NEUTROPHILS % (AUTO) 62.9 % (42-78); TOTAL CELLS COUNTED % (AUTO) 100 %; WHITE BLOOD COUNT 5.1 10^3/uL (4.0-10.5)
[2017-07-18 14:48] LABS: ALANINE AMINOTRANSFERASE 22 U/L (9-52); ALBUMIN 3.8 g/dL (3.5-5.0); ALKALINE PHOSPHATASE 115 U/L (38-126); ANION GAP 9 (5-19); ASPARTATE AMINO TRANSFERASE 16 U/L (14-36); BILIRUBIN,DIRECT 0.1 mg/dL (0.0-0.4); BILIRUBIN,TOTAL 0.4 mg/dL (0.2-1.3); BLOOD UREA NITROGEN 4 mg/dL (7-20); CALCIUM 7.9 mg/dL (8.4-10.2); CARBON DIOXIDE 26 mmol/L (22-30); CHLORIDE 88 mmol/L (98-107); GLUCOSE 92 mg/dL (75-110); POTASSIUM 3.7 mmol/L (3.6-5.0); SODIUM 123.2 mmol/L (137-145); TOTAL PROTEIN 6.1 g/dL (6.3-8.2)
[2017-07-18] MEDS ORDERED: OXYCODONE HCL IR 5 MG TABLET PO ONE (16:14)
[2017-07-18] MEDS ORDERED: ONDANSETRON 4 MG TAB.RAPDIS ONE (17:53)
[2017-07-18] MEDS ORDERED: ONDANSETRON 4 MG TAB.RAPDIS PO ONE (17:55)
[2017-07-18 18:58] VITALS: BP 126/74
== END 2017-07-18 17:58 | disposition home or self-care (01) ==
LOC: ER 12:27
DX: K59.00 Constipation, unspecified (principal); E87.1 Hypo-osmolality and hyponatremia; C34.90 Malignant neoplasm of unspecified part of unspecified bronchus or lung; Z79.899 Other long term (current) drug therapy; R11.10 Vomiting, unspecified; F17.200 Nicotine dependence, unspecified, uncomplicated
CPT/HCPCS: 99284; 36415; 85025; 80053; 74018; J3490 ×3

== ENCOUNTER → 2017-07-21 | Outpatient (CLI) | payer BC ==
--- NOTE | 2017-07-21 15:31 | RADIOLOGY REPORT (SQ) ---
EXAM DESCRIPTION: MRI HEAD COMBO COMPLETED DATE/TIME: 07/21/2017 3:09 pm REASON FOR STUDY: HEADACHES R51 HEADACHE C34.11 MALIGNANT NEOPLASM OF UPPER LOBE, RIGHT BRONCHUS O R L COMPARISON: CT chest abdomen pelvis 07/16/2017 TECHNIQUE: Multiplanar imaging includes noncontrasted T1, T2, FLAIR, diffusion with ADC map and post gadolinium contrast T1 sequences. Images stored on PACS. CONTRAST TYPE AND DOSE: 10 mL IV Multihance. RENAL FUNCTION: GFR > 60. LIMITATIONS: None. FINDINGS: ANATOMY: No congenital anomalies. Normal vascular flow voids. Pituitary fossa normal. CSF SPACES: Normal in size and contour. No hemorrhage. CEREBRUM: Sulci and gyri normal in size and contour. A chronic appearing subcentimeter left frontal deep periventricular white matter infarct is present. No evidence of hemorrhage, mass, or extraaxial fluid collection. No abnormal enhancement post contrast. POSTERIOR FOSSA: No signal alteration. No hemorrhage. No edema, masses, or mass effect. Internal adrian tory canals, cerebellopontine angles, mastoids normal. No enhancing lesions. No abnormal enhancement post contrast. DIFFUSION IMAGING: Negative for acute or subacute infarction. ORBITS: No masses. Globes normal. PARANASAL SINUSES: No fluid levels. Mucosa normal. OTHER: Diffuse decreased T1 marrow signal throughout the calvarium and upper cervical spine, and lili ibular condyles. This is likely due to a combination of sclerotic bone metastatic disease and red ma rrow conversion. No bulky dural enhancement or focal areas of calvarial expansion. IMPRESSION: Diffuse decreased T1 weighted marrow signal throughout the calvarium, mandibular condyle s and upper cervical spine in the field of view. This is likely due to a combination of red marrow c onversion and bony metastatic disease. 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 EVIDENCE OF ACUTE STROKE: No TECHNICAL DOCUMENTATION: JOB ID: [id number] [employer]- All Rights Reserved Reading location - IP/workstation name: [email or web address]
== END ==
LOC: RAD 14:02
PROVIDERS: ATTEND Internal Medicine Hematology & Oncology
DX: C34.11 Malignant neoplasm of upper lobe, right bronchus or lung (principal); R51 Headache
CPT/HCPCS: 82565; 70553; A9577

== ENCOUNTER 2017-07-28 15:22 | Inpatient (IN) | payer BC ==
[2017-07-28] MEDS ORDERED: HYDROMORPHONE HCL INJ/PF 2 MG/ML AMPULE IV ONE (16:07)
--- NOTE | 2017-07-28 16:12 | ER Document Report ---
ED General - General Chief Complaint: Lower Abdominal Pain Stated Complaint: ABDOMINAL PAIN Time Seen by Provider: 07/28/17 15:59 Mode of Arrival: Stretcher Information source: Patient, Relative TRAVEL OUTSIDE OF THE [place] IN LAST 30 DAYS: No - HPI Patient complains to provider of: Abdominal pain Onset: Last week Onset/Duration: Persistent, Worse Quality of pain: Achy Severity: Severe Pain Level: 5 Associated symptoms: Body/muscle aches, Nausea Exacerbated by: Denies Relieved by: Denies Notes: Patient is a 52-year-old female with a history of advanced stage small cell lung cancer with metastases, presenting to the emergency room today complaining of abdominal pain, symptoms have been worsening over the past week, she reports nausea but no vomiting, no fever, no dysuria or hematuria, she generally uses enemas for bowel movements and did so today reporting a small bowel movement, she takes high doses of narcotic painkillers secondary to her history of cancer with chronic pain, her pain medications are not helping her symptoms today - Related Data Allergies/Adverse Reactions: Penicillins Allergy (Verified 07/18/17 12:38) Past Medical History - General Information source: Patient - Social History Smoking Status: Unknown if Ever Smoked Family History: Reviewed & Not Pertinent Pulmonary Medical History: Reports: Hx Pneumonia Renal/ Medical History: Denies: Hx Peritoneal Dialysis Malignancy Medical History: Reports: Hx Lung Cancer Past Surgical History: Reports: Hx Hysterectomy, Hx Tubal Ligation Review of Systems - Review of Systems Constitutional: No symptoms reported EENT: No symptoms reported Cardiovascular: No symptoms reported Respiratory: No symptoms reported Gastrointestinal: See HPI Genitourinary: No symptoms reported Female Genitourinary: No symptoms reported Musculoskeletal: No symptoms reported Skin: No symptoms reported Hematologic/Lymphatic: No symptoms reported Neurological/Psychological: No symptoms reported -: Yes All other systems reviewed and negative Physical Exam - Vital signs Vitals: Resp Pulse Ox 15 94 07/28/17 15:50 07/28/17 15:50 Interpretation: Normal - General General appearance: Alert In distress: Mild - Appears to be in pain - HEENT Head: Normocephalic, Atraumatic Eyes: Normal Pupils: PERRL - Respiratory Respiratory status: No respiratory distress Chest status: Nontender Breath sounds: Normal Chest palpation: Normal - Cardiovascular Rhythm: Regular Heart sounds: Normal auscultation Murmur: No - Abdominal Inspection: Normal Distension: Distended - Diffuse tenderness Bowel sounds: Normal Tenderness: Tender - Diffuse Organomegaly: No organomegaly - Back Back: Normal, Nontender - Extremities General upper extremity: Normal inspection, Nontender, Normal color, Normal ROM , Normal temperature General lower extremity: Normal inspection, Nontender, Normal color, Normal ROM , Normal temperature, Normal weight bearing. No: Wai's sign - Neurological Neuro grossly intact: Yes Cognition: Normal Orientation: AAOx4 [place] Coma Scale Eye Opening: Spontaneous [place] Coma Scale Verbal: Oriented [place] Coma Scale Motor: Obeys Commands [place] Coma Scale Total: 15 Speech: Normal Motor strength normal: LUE, RUE, LLE, RLE Sensory: Normal - Psychological Associated symptoms: Normal affect, Normal mood - Skin Skin Temperature: Warm Skin Moisture: Dry Skin Color: Normal Course - Re-evaluation Re-evalutation: 07/28/17 17:43 Patient with metastatic lung cancer, presenting to the emergency room complaining of abdominal pain, chest x-ray consistent with possible pneumonia, she was sent by oncologist who recommended admission to primary care provider for pain control, patient was discussed with Dr. Lobo, her primary care provider who is in agreement with admission, however requests that a CT scan of the chest abdomen and pelvis with IV contrast be performed - Vital Signs Vital signs: Temp Pulse Resp BP Pulse Ox 19 126/77 H 92 07/28/17 17:01 07/28/17 17:01 07/28/17 17:01 - Laboratory Result Diagrams: 07/28/17 14:55 07/28/17 14:55 Laboratory results interpreted by me: 07/28/17 07/28/17 07/28/17 14:55 14:55 16:03 Hgb 11.0 L Hct 32.5 L RDW 20.3 H Plt Count 579 H Sodium 129.4 L Chloride 91 L Creatinine 0.35 L Alkaline Phosphatase 143 H Urine Ketones 20 H Urine Blood SMALL H - Diagnostic Test Radiology reviewed: Image reviewed, Reports reviewed Discharge - Discharge Clinical Impression: Pneumonia Qualifiers: Pneumonia type: due to unspecified organism Laterality: bilateral Lung location : lower lobe of lung Qualified Code(s): J18.1 - Lobar pneumonia, unspecified organism Metastatic lung cancer (metastasis from lung to other site) Qualifiers: Laterality: unspecified laterality Qualified Code(s): C34.90 - Malignant neoplasm of unspecified part of unspecified bronchus or lung Abdominal pain Qualifiers: Abdominal location: generalized Qualified Code(s): R10.84 - Generalized abdominal pain Condition: Fair Disposition: ADMITTED INPATIENT Admitting Provider: [facility] Unit Admitted: Telemetry Referrals: DANIAL BRANNON MD [Primary Care Provider] - Follow up as needed
[2017-07-28 16:15] LABS: ABSOLUTE LYMPHOCYTES (AUTO) 1.5 10^3/uL (0.5-4.7); ABSOLUTE MONOCYTES (AUTO) 0.8 10^3/uL (0.1-1.4); ABSOLUTE NEUT (AUTO) 7.9 10^3/uL (1.7-8.2); BASOPHILS % (AUTO) 0.2 % (0-2); EOSINOPHILS % (AUTO) 0.3 % (0-6); HEMATOCRIT 32.5 % (36.0-47.0); LYMPHOCYTES % (AUTO) 14.8 % (13-45); MEAN CORPUSCULAR HEMOGLOBIN 29.4 pg (27.0-33.4); MEAN CORPUSCULAR HGB CONC 33.7 g/dL (32.0-36.0); MEAN CORPUSCULAR VOLUME 87 fl (80-97); MONOCYTES % (AUTO) 8.1 % (3-13); PLATELET COUNT 579 10^3/uL (150-450); RED BLOOD COUNT 3.73 10^6/uL (3.72-5.28); RED CELL DISTRIBUTION WIDTH 20.3 % (11.5-14.0); SEGMENTED NEUTROPHILS % (AUTO) 76.6 % (42-78); TOTAL CELLS COUNTED % (AUTO) 100 %; WHITE BLOOD COUNT 10.4 10^3/uL (4.0-10.5)
[2017-07-28 16:31] LABS: ALANINE AMINOTRANSFERASE 23 U/L (9-52); ALBUMIN 3.9 g/dL (3.5-5.0); ALKALINE PHOSPHATASE 143 U/L (38-126); ANION GAP 12 (5-19); ASPARTATE AMINO TRANSFERASE 28 U/L (14-36); BILIRUBIN,DIRECT 0.4 mg/dL (0.0-0.4); BILIRUBIN,TOTAL 0.5 mg/dL (0.2-1.3); BLOOD UREA NITROGEN 9 mg/dL (7-20); CALCIUM 8.5 mg/dL (8.4-10.2); CARBON DIOXIDE 26 mmol/L (22-30); CHLORIDE 91 mmol/L (98-107); GLUCOSE 108 mg/dL (75-110); LIPASE 143.7 U/L (23-300); POTASSIUM 4.2 mmol/L (3.6-5.0); SODIUM 129.4 mmol/L (137-145); TOTAL PROTEIN 7.2 g/dL (6.3-8.2)
[2017-07-28] MEDS: NORMAL SALINE 1000 ML 1,000 ML IV PRN ×2 (16:50→19:11)
--- NOTE | 2017-07-28 16:56 | RADIOLOGY REPORT (SQ) ---
EXAM DESCRIPTION: ACUTE ABDOMEN SERIES COMPLETED DATE/TIME: 07/28/2017 4:25 pm REASON FOR STUDY: pain COMPARISON: CT chest and abdomen 07/16/2017 Chest x-ray 03/03/2017 NUMBER OF VIEWS: Three views. TECHNIQUE: Frontal chest, supine abdomen and upright/decubitus abdomen radiographic images acquired. LIMITATIONS: None. FINDINGS: CHEST: Persistent mass/infiltrate right upper lung field stable. New patchy areas of pulmonary density noted in the right lung base and left lung field, not seen on C T 07/16/2017, consider inflammatory versus neoplastic process. FREE AIR: None. No abnormal gas collections. BOWEL GAS PATTERN: Nonobstructive pattern. No dilated loops or air fluid levels. CALCIFICATIONS: No suspicious calcifications. HARDWARE: None in the abdomen. SOFT TISSUES: Enlarged liver. Metastatic disease previously described. BONES: Blastic bony changes. OTHER: No other significant finding. IMPRESSION: Increasing patchy areas of pulmonary density bilaterally. Nonobstructive bowel pattern. Enlarged liver. Metastasis previously demonstrated. Blastic bony changes. TECHNICAL DOCUMENTATION: JOB ID: [id number] [employer]- All Rights Reserved Reading location - IP/workstation name: [email or web address]
[2017-07-28] MEDS ORDERED: FENTANYL CITRATE INJ/PF 100 MCG/2 ML AMPUL IV ONE (17:24)
[2017-07-28 17:26] LABS: APPEARANCE,URINE CLEAR; BILIRUBIN,URINE NEGATIVE (NEGATIVE); COLOR,URINE YELLOW; GLUCOSE, URINE NEGATIVE (NEGATIVE); KETONES,URINE 20 mg/dL (NEGATIVE); LEUKOCYTE ESTERASE,URINE NEGATIVE (NEGATIVE); NITRITE,URINE NEGATIVE (NEGATIVE); PROTEIN,URINE NEGATIVE (NEGATIVE); URINE SPECIFIC GRAVITY 1.013; UROBILINOGEN,URINE NEGATIVE mg/dL (<2.0)
[2017-07-28] MEDS ORDERED: CEFTRIAXONE RTU 1 GM/D5W 50 ML IV ONE (17:39)
[2017-07-28] MEDS ORDERED: AZITHROMYCIN INJ 500 MG VIAL IV ONE (17:39)
[2017-07-28] MEDS ORDERED: ACETAMINOPHEN 325 MG TABLET PO PRN (18:12)
[2017-07-28] MEDS ORDERED: MAG HYDROX/AL HYDROX/SIMETH SUSP 30 ML UDCUP PO PRN (18:12)
[2017-07-28] MEDS ORDERED: NORMAL SALINE 1000 ML 1,000 ML IV PRN (18:12)
[2017-07-28] MEDS ORDERED: ONDANSETRON HCL INJ/PF 4 MG/2 ML SDV IV PRN (18:12)
--- NOTE | 2017-07-28 18:25 | PDOC H&P ---
History of Present Illness Admission Date/PCP: 07/28/17 17:59 DANIAL BRANNON MD Patient complains of: uncontrol bone pain History of Present Illness: KB IBANEZ is a 52 year old female pt is dx with stage 4 lung cancer and met to bone and liver send to er by onclogy due to uncontrol bone pain pt is c/o back pain/knee pain pt had ct scan done last wk and all worsening diseses pt also had mri done of head pt denied any chest pain no sob pt also have constipation issue due to pain med pt schd for immuno rx this wk per oncology pt is crying due to all pain all over body Past Medical History Pulmonary Medical History: Reports: Pneumonia Malignancy Medical History: Reports: Lung Cancer GI Medical History: Reports: Gastroesophageal Reflux Disease Past Surgical History Past Surgical History: Reports: Hysterectomy, Tubal Ligation Social History Smoking Status: Unknown if Ever Smoked Family History Family History: Reviewed & Not Pertinent Parental Family History Reviewed: Yes Children Family History Reviewed: Yes Sibling(s) Family History Reviewed.: Yes Medication/Allergy Allergies/Adverse Reactions: Penicillins Allergy (Verified 07/18/17 12:38) Review of Systems Constitutional: PRESENT: anorexia, fatigue, weakness, weight loss. ABSENT: chills, fever(s), headache(s), weight gain Eyes: ABSENT: visual disturbances Ears: ABSENT: hearing changes Cardiovascular: ABSENT: chest pain, dyspnea on exertion, edema, orthropnea, palpitations Respiratory: PRESENT: cough. ABSENT: hemoptysis Gastrointestinal: PRESENT: bloating, constipation. ABSENT: abdominal pain, diarrhea, hematemesis, hematochezia, nausea, vomiting Genitourinary: ABSENT: dysuria, hematuria Musculoskeletal: ABSENT: joint swelling Integumentary: ABSENT: rash, wounds Neurological: ABSENT: abnormal gait, abnormal speech, confusion, dizziness, focal weakness, syncope Psychiatric: ABSENT: anxiety, depression, homidical ideation, suicidal ideation Endocrine: ABSENT: cold intolerance, heat intolerance, menstrual abnormalities, polydipsia, polyuria Hematologic/Lymphatic: ABSENT: easy bleeding, easy bruising, lymphadenopathy Physical Exam Vital Signs: Temp Pulse Resp BP Pulse Ox 19 126/77 H 92 07/28/17 17:01 07/28/17 17:01 07/28/17 17:01 General appearance: PRESENT: no acute distress, well-developed, well-nourished Head exam: PRESENT: atraumatic, normocephalic Eye exam: PRESENT: conjunctiva pink, EOMI, PERRLA. ABSENT: scleral icterus Ear exam: PRESENT: normal external ear exam Mouth exam: PRESENT: moist, tongue midline Neck exam: PRESENT: full ROM. ABSENT: carotid bruit, JVD, lymphadenopathy, thyromegaly Respiratory exam: PRESENT: clear to auscultation debra Cardiovascular exam: PRESENT: RRR. ABSENT: diastolic murmur, rubs, systolic murmur Pulses: PRESENT: normal dorsalis pedis pul, +2 pedal pulses bilateral Vascular exam: PRESENT: normal capillary refill GI/Abdominal exam: PRESENT: normal bowel sounds, soft. ABSENT: distended, guarding, mass, organolmegaly, rebound, tenderness Rectal exam: PRESENT: deferred Extremities exam: ABSENT: pedal edema Neurological exam: PRESENT: alert, awake, oriented to person, oriented to place , oriented to time, oriented to situation. ABSENT: motor sensory deficit Psychiatric exam: PRESENT: appropriate affect, normal mood. ABSENT: homicidal ideation, suicidal ideation Skin exam: PRESENT: dry, intact, warm. ABSENT: cyanosis, rash Results Impressions: Acute Abdomen Series 07/28/17 16:08 IMPRESSION: Increasing patchy areas of pulmonary density bilaterally. Nonobstructive bowel pattern. Enlarged liver. Metastasis previously demonstrated. Blastic bony changes. Assessment & Plan - Diagnosis (1) Bone pain Is this a current diagnosis for this admission?: Yes Plan: as per d/w oncology start diludid 2 mg iv q3 cont home med (2) Abdominal pain Qualifiers: Abdominal location: generalized Qualified Code(s): R10.84 - Generalized abdominal pain Is this a current diagnosis for this admission?: Yes Plan: get ct abd /pelvis (3) Metastatic lung cancer (metastasis from lung to other site) Qualifiers: Laterality: unspecified laterality Qualified Code(s): C34.90 - Malignant neoplasm of unspecified part of unspecified bronchus or lung Is this a current diagnosis for this admission?: Yes Plan: f/u with onclogy as per d/w possible hospic care (4) Pneumonia Qualifiers: Pneumonia type: due to unspecified organism Laterality: bilateral Lung location: lower lobe of lung Qualified Code(s): J18.1 - Lobar pneumonia, unspecified organism Is this a current diagnosis for this admission?: Yes Plan: start levaquin - Time Time Spent: 30 to 50 Minutes Medications reviewed and adjusted accordingly: Yes Anticipated discharge: Hospice Within: Other - Inpatient Certification Medical Necessity: Need Close Monitoring Due to Risk of Patient Decompensation, Need For IV Fluids, Need for IV Antibiotics, Other - Plan Summary Plan Summary: d/w pt and about pt condition and porr prognosisi also d/w pt and about pain med and possible respirtoty distress and under stand well but pt and make pt more comfortable with pain med pt and hsuband not sure about code status will d/w oncology
[2017-07-28] MEDS ORDERED: MINERAL OIL 30 ML UDCUP PR ONE (18:59)
[2017-07-28] MEDS ORDERED: CEFTRIAXONE INJ 1000 MG VIAL IV ONE (18:59)
--- NOTE | 2017-07-28 19:45 | RADIOLOGY REPORT (SQ) ---
EXAM DESCRIPTION: CT CHEST WITH; CT ABD/PELVIS WITH IV ONLY COMPLETED DATE/TIME: 07/28/2017 6:43 pm REASON FOR STUDY: pain COMPARISON: 07/16/2017 CT chest and abdomen studies. CONTRAST TYPE AND DOSE: contrast/concentration: Isovue 370.00 mg/ml; Total Contrast Delivered: 90.0 ml; Total Saline Delivered: 55.0 ml RENAL FUNCTION: GFR > 60. TECHNIQUE: CT scan of the chest performed using helical scanning technique with dynamic intravenous contrast injection. Images reviewed with lung, soft tissue and bone windows. Reconstructed coronal a nd sagittal MPR images reviewed. All images stored on PACS. CT scan of the abdomen and pelvis performed with intravenous and with oral contrastusing helical scan dian technique with dynamic intravenous contrast injection. Images reviewed with lung, soft tissue a nd bone windows. Reconstructed coronal and sagittal MPR images reviewed. Delayed images for evaluat ion of the urinary system also acquired and evaluated. All images stored on PACS. All CT scanners at this facility use dose modulation, iterative reconstruction, and/or weight based d osing when appropriate to reduce radiation dose to as low as reasonably achievable (ALARA). [facility]: Dose Right [facility]: CareDose [facility]: Dose Right [facility]: Teradose 4D [facility]: [employer] RADIATION DOSE: CT Rad equipment meets quality standard of care and radiation dose reduction techniq ues were employed. CTDIvol: 4.8 - 4.9 mGy. DLP: 563 mGy-cm. . LIMITATIONS: None. FINDINGS: CHEST: LUNGS AND PLEURA: Extensive persistent consolidation and collapse in the right upper lobe. Numerous rounded masslike areas of airspace disease look slightly more conspicuous. There is also multifocal bilateral patchy ground-glass infiltrate throughout the upper and lower lobes now noted. Trace right pleural effusion. HILAR AND MEDIASTINAL STRUCTURES: Persistent enlarged sub- carinal node. Confluent tissue along the right hilum. HEART AND VASCULAR STRUCTURES: No developing pericardial effusion, aortic dissection or aneurysm or g ross pulmonary embolus. HARDWARE: None. THYROID AND OTHER SOFT TISSUES: Nodular left lobe thyroid. No axillary adenopathy or chest wall mass . BONES: Heterogeneous bones diffusely, mixed lytic and sclerotic metastatic lesions. OTHER: No other significant finding. ABDOMEN AND PELVIS: LIVER: Numerous rounded liver metastatic lesions. Grossly progressive in size and number. Largest l esions now measure close to 3 cm. SPLEEN: Normal size. No focal lesions. PANCREAS: No masses. No significant calcifications. No adjacent inflammation or peripancreatic fluid collections. Pancreatic duct not dilated. GALLBLADDER: No identified stones by CT criteria. No inflammatory changes to suggest cholecystitis. ADRENAL GLANDS: No significant masses or asymmetry. RIGHT KIDNEY AND URETER: No solid masses. No significant calcification. No hydronephrosis or hydroure ter. LEFT KIDNEY AND URETER: No solid masses. No significant calcification. No hydronephrosis or hydrouret er. AORTA AND VESSELS: No aneurysm. No dissection. Renal arteries, SMA, celiac without stenosis. RETROPERITONEUM: No retroperitoneal adenopathy, hemorrhage or masses. BOWEL AND PERITONEAL CAVITY: Large amount of proximal colonic stool. No mechanical bowel obstruction , ascites or abnormal gas. APPENDIX: Not seen. ABDOMINAL WALL: No masses. No hernias. PELVIS: No mass or free fluid. Normal bladder. BONES: Widespread osseous metastatic disease. OTHER: No other significant finding. IMPRESSION: 1. Progressing right upper lobe volume loss and areas of focal soft tissue/ airspace [place] when compared to June. There are also numerous diffuse bilateral ground-glass infiltrates whic h have developed. 2. Diffuse osseous metastatic disease. 3. Progressive liver metastatic lesions, increasing in size and number. TECHNICAL DOCUMENTATION: JOB ID: [id number] Quality ID # [id number]: Final reports with documentation of one or more dose reduction techniques (e.g., Au tomated exposure control, adjustment of the mA and/or kV according to patient size, use of iterative reconstruction technique) 2010 [employer]- All Rights Reserved Reading location - IP/workstation name: [email or web address]
[2017-07-28] MEDS ORDERED: PROMETHAZINE HCL 25 MG TABLET PO PRN (20:19)
[2017-07-28] MEDS: FENTANYL CITRATE INJ/PF 100 MCG/2 ML AMPUL IV PRN ×3 (20:19→23:11)
[2017-07-28] MEDS ORDERED: ONDANSETRON HCL 8 MG TABLET PO PRN (20:19)
[2017-07-28] MEDS ORDERED: ALBUTEROL SULFATE HFA (90 MCG/PUFF) 200 PUFF/8.5 GM MDI IH PRN (20:19)
[2017-07-28] MEDS: HYDROMORPHONE HCL INJ/PF 2 MG/ML AMPULE IV PRN (20:30)
[2017-07-28] MEDS: OXYCODONE HCL SR 10 MG TABLET PO SCH (21:19)
[2017-07-28] MEDS: FAMOTIDINE INJ/PF 20 MG/2 ML SDV IV SCH (21:21)
[2017-07-28] MEDS ORDERED: MINERAL OIL ENEMA 133 ML PR ONE (22:00)
[2017-07-28] MEDS ORDERED: AZITHROMYCIN 500 MG in DEXTROSE 5%-WATER 250 ML IV ONE (22:00)
[2017-07-28] MEDS ORDERED: ALPRAZOLAM 0.5 MG TABLET PO SCH (22:00)
[2017-07-28] MEDS: LUBIPROSTONE 24 MCG CAPSULE PO SCH (23:07)
[2017-07-28] MEDS: DRONABINOL 2.5 MG CAPSULE PO SCH (23:10)
[2017-07-29] MEDS: OXYCODONE HCL IR 5 MG TABLET PO PRN ×2 (00:35→03:30)
[2017-07-29] MEDS ORDERED: DEXTROSE 50%-WATER SYRINGE 25 GM/50 ML DOSE IV PRN (01:15)
[2017-07-29] MEDS ORDERED: DEXTROSE 40% GEL 15 GM TUBE PO PRN (01:15)
[2017-07-29] MEDS ORDERED: INSULIN LISPRO 100 UNIT/ML 3 ML VIAL SUBCUT PRN (01:15)
[2017-07-29] MEDS ORDERED: DEXTROSE 40% GEL 15 GM TUBE X 2 PO PRN (01:15)
[2017-07-29] MEDS ORDERED: DEXTROSE 50%-WATER SYRINGE 12.5 GM/25 ML DOSE IV PRN (01:15)
[2017-07-29] MEDS ORDERED: GLUCAGON,HUMAN RECOMB 1 MG INJ IM PRN (01:15)
[2017-07-29] MEDS: FENTANYL CITRATE INJ/PF 100 MCG/2 ML AMPUL IV PRN ×10 (02:17→23:36)
[2017-07-29] MEDS: IPRATROPIUM/ALBUTEROL 0.5-2.5 MG/3 ML AMPUL NEB PRN ×2 (03:08→11:08)
[2017-07-29] MEDS: DRONABINOL 2.5 MG CAPSULE PO SCH ×3 (05:18→21:26)
[2017-07-29] MEDS: OXYCODONE HCL SR 10 MG TABLET PO SCH ×3 (05:19→21:24)
[2017-07-29] MEDS: LANSOPRAZOLE 15 MG TAB.RAP.DR PO SCH (05:25)
[2017-07-29 06:49] LABS: ABSOLUTE EOSINOPHILS # (AUTO) 0.1 10^3/uL (0.0-0.6); ABSOLUTE LYMPHOCYTES (AUTO) 1.1 10^3/uL (0.5-4.7); ABSOLUTE MONOCYTES (AUTO) 0.9 10^3/uL (0.1-1.4); ABSOLUTE NEUT (AUTO) 7.1 10^3/uL (1.7-8.2); BASOPHILS % (AUTO) 0.5 % (0-2); EOSINOPHILS % (AUTO) 1.1 % (0-6); HEMATOCRIT 30.7 % (36.0-47.0); HEMOGLOBIN 10.2 g/dL (12.0-15.5); LYMPHOCYTES % (AUTO) 11.6 % (13-45); MEAN CORPUSCULAR HEMOGLOBIN 28.8 pg (27.0-33.4); MEAN CORPUSCULAR HGB CONC 33.3 g/dL (32.0-36.0); MEAN CORPUSCULAR VOLUME 87 fl (80-97); MONOCYTES % (AUTO) 9.6 % (3-13); PLATELET COUNT 554 10^3/uL (150-450); RED BLOOD COUNT 3.55 10^6/uL (3.72-5.28); RED CELL DISTRIBUTION WIDTH 20.6 % (11.5-14.0); SEGMENTED NEUTROPHILS % (AUTO) 77.2 % (42-78); TOTAL CELLS COUNTED % (AUTO) 100 %; WHITE BLOOD COUNT 9.2 10^3/uL (4.0-10.5)
[2017-07-29 07:15] LABS: ANION GAP 9 (5-19); BLOOD UREA NITROGEN 3 mg/dL (7-20); CALCIUM 7.7 mg/dL (8.4-10.2); CARBON DIOXIDE 26 mmol/L (22-30); CHLORIDE 94 mmol/L (98-107); GLUCOSE 115 mg/dL (75-110); POTASSIUM 3.9 mmol/L (3.6-5.0); SODIUM 128.8 mmol/L (137-145)
[2017-07-29] MEDS: HYDROMORPHONE HCL INJ/PF 2 MG/ML AMPULE IV PRN (07:56)
[2017-07-29] MEDS: LORAZEPAM INJ 2 MG/1 ML VIAL IV PRN ×3 (08:49→22:51)
--- NOTE | 2017-07-29 08:55 | PDOC CONSULTATION ---
Consultation Consult Date: 07/29/17 Attending physician:: LOPEZ BUTLER Consult reason:: lung ca, uncontrolled pain History of Present Illness Admission Date/PCP: 07/28/17 17:59 DANIAL BRANNON MD Patient complains of: severe pain, sob History of Present Illness: 52-year-old female with known history of extensive stage small cell lung cancer , recently with progression of disease, lung metastasis bone metastasis multiple liver metastasis, was supposed to start on immunotherapy last week but performance status worsened, patient was given IV fluids but over the last 48 hours has had severe pain and abdominal pain, worsening constipation, nausea and vomiting, ultimately was brought in because of the severe pain, repeat CT imaging was done and disease is progressing, there is a large burden of stool throughout the colon, today we had a long discussion with the patient and family , spent greater than 70 minutes in discussion and coordination of care this morning. Past Medical History Pulmonary Medical History: Reports: Pneumonia Malignancy Medical History: Reports: Lung Cancer GI Medical History: Reports: Gastroesophageal Reflux Disease Past Surgical History Past Surgical History: Reports: Hysterectomy, Tubal Ligation Social History Smoking Status: Current Every Day Smoker - Advance Directive Resuscitation Status: Do Not Resuscitate Family History Family History: Reviewed & Not Pertinent Parental Family History Reviewed: Yes Children Family History Reviewed: Yes Sibling(s) Family History Reviewed.: Yes Medication/Allergy Home Medications: Albuterol Sulfate [Proair HFA Inhalation Aerosol 8.5 gm MDI] 2 puff IH Q6HP PRN 07/28/17 Alprazolam [Xanax 0.5 mg Tablet] 0.5 mg PO Q12 07/28/17 Cyclobenzaprine HCl [Flexeril 5 mg Tablet] 5 mg PO DAILY 07/28/17 Dronabinol [Marinol] 5 mg PO TID 07/28/17 Lubiprostone [Amitiza] 24 mcg PO Q12 07/28/17 Ondansetron HCl [Zofran 8 mg Tablet] 8 mg PO Q8HP PRN 07/28/17 Oxycodone HCl 20 mg PO Q3HP PRN 07/28/17 Oxycodone HCl [Oxycontin] 30 mg PO Q8 07/28/17 Pantoprazole Sodium [Protonix] 20 mg PO DAILY 07/28/17 Promethazine HCl [Phenergan 25 mg Tablet] 25 mg PO Q6HP PRN 07/28/17 Allergies/Adverse Reactions: Penicillins Allergy (Verified 07/18/17 12:38) Review of Systems Constitutional: PRESENT: anorexia, fatigue, weakness Cardiovascular: PRESENT: chest pain, dyspnea on exertion Gastrointestinal: PRESENT: abdominal pain, bloating, constipation, nausea, vomiting Musculoskeletal: PRESENT: back pain, muscle weakness Neurological: PRESENT: confusion, dizziness, weakness Psychiatric: PRESENT: anxiety, depression Endocrine: PRESENT: cold intolerance Physical Exam Vital Signs: Temp Pulse Resp BP Pulse Ox 98.3 F 99 20 123/85 99 07/29/17 07:35 07/29/17 07:35 07/29/17 07:35 07/29/17 07:35 07/29/17 07:35 Intake & Output 07/28/17 07/29/17 07/30/17 06:59 06:59 06:59 Intake Total 1168 Output Total 500 Balance 668 Weight 49 kg General appearance: PRESENT: no acute distress, well-developed, well-nourished Head exam: PRESENT: atraumatic, normocephalic Eye exam: PRESENT: conjunctiva pink, EOMI, PERRLA. ABSENT: scleral icterus Ear exam: PRESENT: normal external ear exam Mouth exam: PRESENT: moist, tongue midline Neck exam: ABSENT: carotid bruit, JVD, lymphadenopathy, thyromegaly Respiratory exam: PRESENT: clear to auscultation debra. ABSENT: rales, rhonchi, wheezes Cardiovascular exam: PRESENT: RRR. ABSENT: diastolic murmur, rubs, systolic murmur Pulses: PRESENT: normal dorsalis pedis pul Vascular exam: PRESENT: normal capillary refill GI/Abdominal exam: PRESENT: normal bowel sounds, soft. ABSENT: distended, guarding, mass, organolmegaly, rebound, tenderness Rectal exam: PRESENT: deferred Extremities exam: PRESENT: full ROM. ABSENT: calf tenderness, clubbing, pedal edema Neurological exam: PRESENT: alert, awake, oriented to person, oriented to place , oriented to time, oriented to situation, CN II-XII grossly intact. ABSENT: motor sensory deficit Psychiatric exam: PRESENT: appropriate affect, normal mood. ABSENT: homicidal ideation, suicidal ideation Skin exam: PRESENT: dry, intact, warm. ABSENT: cyanosis, rash Results Laboratory Results: 07/29/17 06:27 07/29/17 06:27 07/29/17 07/29/17 06:27 06:27 WBC 9.2 RBC 3.55 L Hgb 10.2 L Hct 30.7 L MCV 87 MCH 28.8 MCHC 33.3 RDW 20.6 H Plt Count 554 H Seg Neutrophils % 77.2 Lymphocytes % 11.6 L Monocytes % 9.6 Eosinophils % 1.1 Basophils % 0.5 Absolute Neutrophils 7.1 Absolute Lymphocytes 1.1 Absolute Monocytes 0.9 Absolute Eosinophils 0.1 Absolute Basophils 0.0 Sodium 128.8 L Potassium 3.9 Chloride 94 L Carbon Dioxide 26 Anion Gap 9 BUN 3 L Creatinine 0.28 L Est GFR ( Amer) > 60 Est GFR (Non-Af Amer) > 60 Glucose 115 H Calcium 7.7 L Impressions: Acute Abdomen Series 07/28/17 16:08 IMPRESSION: Increasing patchy areas of pulmonary density bilaterally. Nonobstructive bowel pattern. Enlarged liver. Metastasis previously demonstrated. Blastic bony changes. Abdomen/Pelvis CT 07/28/17 17:42 IMPRESSION: 1. Progressing right upper lobe volume loss and areas of focal soft tissue/ airspace opacity when compared to June. There are also numerous diffuse bilateral ground-glass infiltrates which have developed. 2. Diffuse osseous metastatic disease. 3. Progressive liver metastatic lesions, increasing in size and number. Chest CT 07/28/17 17:42 IMPRESSION: 1. Progressing right upper lobe volume loss and areas of focal soft tissue/ airspace opacity when compared to June. There are also numerous diffuse bilateral ground-glass infiltrates which have developed. 2. Diffuse osseous metastatic disease. 3. Progressive liver metastatic lesions, increasing in size and number. Status: Image reviewed by me Assessment & Plan - Diagnosis (1) Metastatic lung cancer (metastasis from lung to other site) Qualifiers: Laterality: right Qualified Code(s): C34.91 - Malignant neoplasm of unspecified part of right bronchus or lung Is this a current diagnosis for this admission?: Yes Plan: Progressive small cell lung cancer, today I had a long discussion with family, recommended DNR, she will not be eligible for further chemotherapy, ultimately we will need to get to hospice, patient agreed to DNR (2) Bone pain Is this a current diagnosis for this admission?: Yes Plan: Secondary to the cancer, I will discontinue the oxycodone and in 24 hours discontinue the OxyContin, start fentanyl patch, start fentanyl lozenge - Time Time Spent: Greater than 70 Minutes - Inpatient Certification Based on my medical assessment, after consideration of the patient's comorbidities, presenting symptoms, or acuity I expect that the services needed warrant INPATIENT care.: Yes I certify that my determination is in accordance with my understanding of Medicare's requirements for reasonable and necessary INPATIENT services [42 CFR 412.3e].: Yes Medical Necessity: Need for Pain Control
[2017-07-29] MEDS ORDERED: (PENDING PHARMACY ID) (Pantoprazole Sodium [Protonix] 20 MG) PO SCH (10:00)
[2017-07-29] MEDS ORDERED: FENTANYL 100 MCG/HR PATCH.TD72 TD SCH (10:00)
[2017-07-29] MEDS ORDERED: LEVOFLOXACIN 500 MG TABLET PO SCH (10:00)
[2017-07-29] MEDS: CYCLOBENZAPRINE HCL 10 MG TABLET PO SCH (10:14)
[2017-07-29] MEDS: POLYETHYLENE GLYCOL 3350 POWDER 17 GM/1 PACKET PO SCH (10:17)
[2017-07-29] MEDS: FENTANYL CITRATE BUCCAL PRN ×2 (10:17→22:42)
[2017-07-29] MEDS: DOCUSATE SODIUM 100 MG CAPSULE PO SCH ×2 (10:18→18:17)
[2017-07-29] MEDS: FAMOTIDINE INJ/PF 20 MG/2 ML SDV IV SCH ×2 (10:19→21:25)
[2017-07-29] MEDS: ENOXAPARIN SODIUM INJ 40 MG/0.4 ML DISP.SYRIN SUBCUT SCH (10:19)
[2017-07-29] MEDS: LUBIPROSTONE 24 MCG CAPSULE PO SCH ×2 (10:20→21:26)
--- NOTE | 2017-07-29 12:24 | PDOC PROGRESS REPORT ---
Subjective Progress Note for:: 07/29/17 Subjective:: Patient is currently doing fair Since pain is fairly controlled oncology adjust the pain medications Patient is currently a DNR/DNI as per oncologist the patient's and the Patient's CT scan of the chest abdomen pelvis was pretty much same with consistent with the stool impactions Reason For Visit: STAGE 4 LUNG CANCER/UNCONTROL PAIN Physical Exam Vital Signs: Temp Pulse Resp BP Pulse Ox 98.3 F 102 H 20 123/85 96 07/29/17 07:35 07/29/17 11:08 07/29/17 11:08 07/29/17 07:35 07/29/17 11:08 Intake & Output 07/28/17 07/29/17 07/30/17 06:59 06:59 06:59 Intake Total 1168 Output Total 500 Balance 668 Weight 49 kg General appearance: PRESENT: no acute distress, well-developed, well-nourished Head exam: PRESENT: atraumatic, normocephalic Eye exam: PRESENT: conjunctiva pink, EOMI, PERRLA. ABSENT: scleral icterus Ear exam: PRESENT: normal external ear exam Mouth exam: PRESENT: moist, tongue midline Neck exam: PRESENT: full ROM. ABSENT: carotid bruit, JVD, lymphadenopathy, thyromegaly Respiratory exam: PRESENT: clear to auscultation debra Cardiovascular exam: PRESENT: RRR. ABSENT: diastolic murmur, rubs, systolic murmur Pulses: PRESENT: normal dorsalis pedis pul, +2 pedal pulses bilateral Vascular exam: PRESENT: normal capillary refill GI/Abdominal exam: PRESENT: normal bowel sounds, soft. ABSENT: distended, guarding, mass, organolmegaly, rebound, tenderness Rectal exam: PRESENT: deferred Extremities exam: ABSENT: pedal edema Neurological exam: PRESENT: alert, awake, oriented to person, oriented to place , oriented to time, oriented to situation, CN II-XII grossly intact. ABSENT: motor sensory deficit Psychiatric exam: PRESENT: appropriate affect, normal mood. ABSENT: homicidal ideation, suicidal ideation Skin exam: PRESENT: dry, intact, warm. ABSENT: cyanosis, rash Results Laboratory Results: 07/29/17 06:27 07/29/17 06:27 07/29/17 07/29/17 06:27 06:27 WBC 9.2 RBC 3.55 L Hgb 10.2 L Hct 30.7 L MCV 87 MCH 28.8 MCHC 33.3 RDW 20.6 H Plt Count 554 H Seg Neutrophils % 77.2 Lymphocytes % 11.6 L Monocytes % 9.6 Eosinophils % 1.1 Basophils % 0.5 Absolute Neutrophils 7.1 Absolute Lymphocytes 1.1 Absolute Monocytes 0.9 Absolute Eosinophils 0.1 Absolute Basophils 0.0 Sodium 128.8 L Potassium 3.9 Chloride 94 L Carbon Dioxide 26 Anion Gap 9 BUN 3 L Creatinine 0.28 L Est GFR ( Amer) > 60 Est GFR (Non-Af Amer) > 60 Glucose 115 H Calcium 7.7 L Impressions: Acute Abdomen Series 07/28/17 16:08 IMPRESSION: Increasing patchy areas of pulmonary density bilaterally. Nonobstructive bowel pattern. Enlarged liver. Metastasis previously demonstrated. Blastic bony changes. Abdomen/Pelvis CT 07/28/17 17:42 IMPRESSION: 1. Progressing right upper lobe volume loss and areas of focal soft tissue/ airspace opacity when compared to June. There are also numerous diffuse bilateral ground-glass infiltrates which have developed. 2. Diffuse osseous metastatic disease. 3. Progressive liver metastatic lesions, increasing in size and number. Chest CT 07/28/17 17:42 IMPRESSION: 1. Progressing right upper lobe volume loss and areas of focal soft tissue/ airspace opacity when compared to June. There are also numerous diffuse bilateral ground-glass infiltrates which have developed. 2. Diffuse osseous metastatic disease. 3. Progressive liver metastatic lesions, increasing in size and number. Assessment & Plan - Diagnosis (1) Bone pain Is this a current diagnosis for this admission?: Yes Plan: Continues to current medication aspirated just by Dr. dye (2) Abdominal pain Qualifiers: Abdominal location: generalized Qualified Code(s): R10.84 - Generalized abdominal pain Is this a current diagnosis for this admission?: Yes Plan: Continues to MiraLAX and the Colace and add the lactulose (3) Metastatic lung cancer (metastasis from lung to other site) Qualifiers: Laterality: right Qualified Code(s): C34.91 - Malignant neoplasm of unspecified part of right bronchus or lung Is this a current diagnosis for this admission?: Yes Plan: External discussed myself with the oncology and the patient is currently a DNR/DNI (4) Pneumonia Qualifiers: Pneumonia type: due to unspecified organism Laterality: bilateral Lung location: lower lobe of lung Qualified Code(s): J18.1 - Lobar pneumonia, unspecified organism Is this a current diagnosis for this admission?: Yes Plan: IV Levaquin - Time Time Spent with patient: 15-24 minutes Medications reviewed and adjusted accordingly: Yes Anticipated discharge: Home Within: Other - Inpatient Certification Medical Necessity: Need Close Monitoring Due to Risk of Patient Decompensation Post Hospital Care: D/C Medical Director Occupational Health Documentation - Plan Summary Plan Summary: Continues to IV fluid continues to IV Levaquin
[2017-07-29] MEDS ORDERED: MAGNESIUM CITRATE 296 ML BOTTLE PO ONE (16:00)
[2017-07-29] MEDS ORDERED: MINERAL OIL 30 ML UDCUP PO ONE (19:00)
[2017-07-30] MEDS: LANSOPRAZOLE 15 MG TAB.RAP.DR PO SCH (04:18)
[2017-07-30] MEDS: FENTANYL CITRATE INJ/PF 100 MCG/2 ML AMPUL IV PRN ×3 (04:30→14:55)
[2017-07-30] MEDS: DRONABINOL 2.5 MG CAPSULE PO SCH ×2 (07:26→13:46)
[2017-07-30] MEDS: OXYCODONE HCL SR 10 MG TABLET PO SCH (07:26)
[2017-07-30 07:30] LABS: ABSOLUTE EOSINOPHILS # (AUTO) 0.1 10^3/uL (0.0-0.6); ABSOLUTE LYMPHOCYTES (AUTO) 1.5 10^3/uL (0.5-4.7); ABSOLUTE MONOCYTES (AUTO) 0.9 10^3/uL (0.1-1.4); ABSOLUTE NEUT (AUTO) 7.2 10^3/uL (1.7-8.2); BASOPHILS % (AUTO) 0.5 % (0-2); EOSINOPHILS % (AUTO) 0.9 % (0-6); HEMOGLOBIN 10.7 g/dL (12.0-15.5); LYMPHOCYTES % (AUTO) 15.1 % (13-45); MEAN CORPUSCULAR HEMOGLOBIN 29.1 pg (27.0-33.4); MEAN CORPUSCULAR HGB CONC 33.5 g/dL (32.0-36.0); MEAN CORPUSCULAR VOLUME 87 fl (80-97); MONOCYTES % (AUTO) 8.8 % (3-13); PLATELET COUNT 572 10^3/uL (150-450); RED BLOOD COUNT 3.67 10^6/uL (3.72-5.28); RED CELL DISTRIBUTION WIDTH 20.2 % (11.5-14.0); SEGMENTED NEUTROPHILS % (AUTO) 74.7 % (42-78); TOTAL CELLS COUNTED % (AUTO) 100 %; WHITE BLOOD COUNT 9.7 10^3/uL (4.0-10.5)
[2017-07-30 07:47] LABS: ANION GAP 13 (5-19); BLOOD UREA NITROGEN 5 mg/dL (7-20); CALCIUM 8.3 mg/dL (8.4-10.2); CARBON DIOXIDE 24 mmol/L (22-30); CHLORIDE 98 mmol/L (98-107); GLUCOSE 101 mg/dL (75-110); POTASSIUM 4.5 mmol/L (3.6-5.0)
--- NOTE | 2017-07-30 08:33 | PDOC PROGRESS REPORT ---
Subjective Progress Note for:: 07/30/17 Subjective:: Multiple BMs yesterday, doing better today, pain better controlled, pt is more lethargic this am. Discussed extensively w/ , he wants hospice at home, will contact [facility] and have them call him and set things up, spent > 45 min in discussion and coordination of care. Reason For Visit: STAGE 4 LUNG CANCER/UNCONTROL PAIN Physical Exam Vital Signs: Temp Pulse Resp BP Pulse Ox 97.9 F 113 H 18 108/83 97 07/30/17 04:03 07/30/17 04:03 07/30/17 04:03 07/30/17 04:03 07/30/17 04:03 Intake & Output 07/29/17 07/30/17 07/31/17 06:59 06:59 06:59 Intake Total 1168 730 Output Total 500 Balance 668 730 Weight 49 kg 48 kg General appearance: PRESENT: no acute distress Head exam: PRESENT: atraumatic Respiratory exam: PRESENT: clear to auscultation debra. ABSENT: rales, rhonchi, wheezes Cardiovascular exam: PRESENT: RRR. ABSENT: diastolic murmur, rubs, systolic murmur GI/Abdominal exam: PRESENT: soft Neurological exam: PRESENT: altered Results Laboratory Results: 07/30/17 06:55 07/30/17 06:55 07/30/17 07/30/17 06:55 06:55 WBC 9.7 RBC 3.67 L Hgb 10.7 L Hct 32.0 L MCV 87 MCH 29.1 MCHC 33.5 RDW 20.2 H Plt Count 572 H Seg Neutrophils % 74.7 Lymphocytes % 15.1 Monocytes % 8.8 Eosinophils % 0.9 Basophils % 0.5 Absolute Neutrophils 7.2 Absolute Lymphocytes 1.5 Absolute Monocytes 0.9 Absolute Eosinophils 0.1 Absolute Basophils 0.0 Sodium 135.0 L Potassium 4.5 Chloride 98 Carbon Dioxide 24 Anion Gap 13 BUN 5 L Creatinine 0.28 L Est GFR ( Amer) > 60 Est GFR (Non-Af Amer) > 60 Glucose 101 Calcium 8.3 L Impressions: Acute Abdomen Series 07/28/17 16:08 IMPRESSION: Increasing patchy areas of pulmonary density bilaterally. Nonobstructive bowel pattern. Enlarged liver. Metastasis previously demonstrated. Blastic bony changes. Abdomen/Pelvis CT 07/28/17 17:42 IMPRESSION: 1. Progressing right upper lobe volume loss and areas of focal soft tissue/ airspace opacity when compared to June. There are also numerous diffuse bilateral ground-glass infiltrates which have developed. 2. Diffuse osseous metastatic disease. 3. Progressive liver metastatic lesions, increasing in size and number. Chest CT 07/28/17 17:42 IMPRESSION: 1. Progressing right upper lobe volume loss and areas of focal soft tissue/ airspace opacity when compared to June. There are also numerous diffuse bilateral ground-glass infiltrates which have developed. 2. Diffuse osseous metastatic disease. 3. Progressive liver metastatic lesions, increasing in size and number. Assessment & Plan - Diagnosis (1) Metastatic lung cancer (metastasis from lung to other site) Qualifiers: Laterality: right Qualified Code(s): C34.91 - Malignant neoplasm of unspecified part of right bronchus or lung Is this a current diagnosis for this admission?: Yes Plan: No further chemo/rx possible, plan to start hospice (2) Bone pain Is this a current diagnosis for this admission?: Yes Plan: Better, will need d/c w./ fentanlyl patch and lozenge. I will write and have hospice strip picker rx from us - Time Time Spent with patient: 35 or more minutes
--- NOTE | 2017-07-30 08:45 | PDOC PROGRESS REPORT ---
Subjective Progress Note for:: 07/30/17 Subjective:: Patient is currently doing fair pt have positive bowel movement Reason For Visit: STAGE 4 LUNG CANCER/UNCONTROL PAIN Physical Exam Vital Signs: Temp Pulse Resp BP Pulse Ox 97.9 F 113 H 18 108/83 97 07/30/17 04:03 07/30/17 04:03 07/30/17 04:03 07/30/17 04:03 07/30/17 04:03 Intake & Output 07/29/17 07/30/17 07/31/17 06:59 06:59 06:59 Intake Total 1168 730 Output Total 500 Balance 668 730 Weight 49 kg 48 kg General appearance: PRESENT: no acute distress, well-developed, well-nourished Head exam: PRESENT: atraumatic, normocephalic Eye exam: PRESENT: conjunctiva pink, EOMI, PERRLA. ABSENT: scleral icterus Ear exam: PRESENT: normal external ear exam Mouth exam: PRESENT: moist, tongue midline Neck exam: PRESENT: full ROM. ABSENT: carotid bruit, JVD, lymphadenopathy, thyromegaly Respiratory exam: PRESENT: clear to auscultation debra Cardiovascular exam: PRESENT: RRR. ABSENT: diastolic murmur, rubs, systolic murmur Pulses: PRESENT: normal dorsalis pedis pul, +2 pedal pulses bilateral Vascular exam: PRESENT: normal capillary refill GI/Abdominal exam: PRESENT: normal bowel sounds, soft. ABSENT: distended, guarding, mass, organolmegaly, rebound, tenderness Rectal exam: PRESENT: deferred Neurological exam: PRESENT: alert, awake, oriented to person, oriented to place , oriented to time, oriented to situation, CN II-XII grossly intact. ABSENT: motor sensory deficit Psychiatric exam: PRESENT: appropriate affect, normal mood. ABSENT: homicidal ideation, suicidal ideation Skin exam: PRESENT: dry, intact, warm. ABSENT: cyanosis, rash Results Laboratory Results: 07/30/17 06:55 07/30/17 06:55 07/30/17 07/30/17 06:55 06:55 WBC 9.7 RBC 3.67 L Hgb 10.7 L Hct 32.0 L MCV 87 MCH 29.1 MCHC 33.5 RDW 20.2 H Plt Count 572 H Seg Neutrophils % 74.7 Lymphocytes % 15.1 Monocytes % 8.8 Eosinophils % 0.9 Basophils % 0.5 Absolute Neutrophils 7.2 Absolute Lymphocytes 1.5 Absolute Monocytes 0.9 Absolute Eosinophils 0.1 Absolute Basophils 0.0 Sodium 135.0 L Potassium 4.5 Chloride 98 Carbon Dioxide 24 Anion Gap 13 BUN 5 L Creatinine 0.28 L Est GFR ( Amer) > 60 Est GFR (Non-Af Amer) > 60 Glucose 101 Calcium 8.3 L Impressions: Acute Abdomen Series 07/28/17 16:08 IMPRESSION: Increasing patchy areas of pulmonary density bilaterally. Nonobstructive bowel pattern. Enlarged liver. Metastasis previously demonstrated. Blastic bony changes. Abdomen/Pelvis CT 07/28/17 17:42 IMPRESSION: 1. Progressing right upper lobe volume loss and areas of focal soft tissue/ airspace opacity when compared to June. There are also numerous diffuse bilateral ground-glass infiltrates which have developed. 2. Diffuse osseous metastatic disease. 3. Progressive liver metastatic lesions, increasing in size and number. Chest CT 07/28/17 17:42 IMPRESSION: 1. Progressing right upper lobe volume loss and areas of focal soft tissue/ airspace opacity when compared to June. There are also numerous diffuse bilateral ground-glass infiltrates which have developed. 2. Diffuse osseous metastatic disease. 3. Progressive liver metastatic lesions, increasing in size and number. Assessment & Plan - Diagnosis (1) Bone pain Is this a current diagnosis for this admission?: Yes Plan: Continues to current medication aspirated just by Dr. dye (2) Abdominal pain Qualifiers: Abdominal location: generalized Qualified Code(s): R10.84 - Generalized abdominal pain Is this a current diagnosis for this admission?: Yes Plan: Continues to MiraLAX and the Colace and add the lactulose (3) Metastatic lung cancer (metastasis from lung to other site) Qualifiers: Laterality: right Qualified Code(s): C34.91 - Malignant neoplasm of unspecified part of right bronchus or lung Is this a current diagnosis for this admission?: Yes Plan: External discussed myself with the oncology and the patient is currently a DNR/DNI (4) Pneumonia Qualifiers: Pneumonia type: due to unspecified organism Laterality: bilateral Lung location: lower lobe of lung Qualified Code(s): J18.1 - Lobar pneumonia, unspecified organism Is this a current diagnosis for this admission?: Yes Plan: IV Levaquin - Time Time Spent with patient: 15-24 minutes Medications reviewed and adjusted accordingly: Yes Anticipated discharge: Hospice Within: Other - Inpatient Certification Medical Necessity: Need Close Monitoring Due to Risk of Patient Decompensation Post Hospital Care: D/C Eviscerator Documentation - Plan Summary Plan Summary: Discussed with the hospital oncology and pretty much going for the hospice care today or tomorrow
[2017-07-30] MEDS ORDERED: LEVOFLOXACIN 500 MG/D5W RTU 500 MG/100 ML RTUPB IV SCH (10:00)
[2017-07-30] MEDS: ENOXAPARIN SODIUM INJ 40 MG/0.4 ML DISP.SYRIN SUBCUT SCH (10:34)
[2017-07-30] MEDS: CYCLOBENZAPRINE HCL 10 MG TABLET PO SCH (10:36)
[2017-07-30] MEDS: DOCUSATE SODIUM 100 MG CAPSULE PO SCH (10:36)
[2017-07-30] MEDS: POLYETHYLENE GLYCOL 3350 POWDER 17 GM/1 PACKET PO SCH (10:36)
[2017-07-30] MEDS: FAMOTIDINE INJ/PF 20 MG/2 ML SDV IV SCH (10:37)
[2017-07-30] MEDS: LUBIPROSTONE 24 MCG CAPSULE PO SCH (10:38)
[2017-07-30] MEDS: LORAZEPAM INJ 2 MG/1 ML VIAL IV PRN (12:04)
[2017-07-30] MEDS: FENTANYL CITRATE BUCCAL PRN (14:51)
[2017-07-30 15:25] VITALS: BP 122/76
--- NOTE | 2017-08-08 14:49 | PDOC DISCHARGE SUMMARY ---
General - Admit/Disc Date/PCP Admission Date/Primary Care Provider: 07/28/17 17:59 DANIAL BRANNON MD Discharge Date: 07/30/17 - Discharge Diagnosis (1) Bone pain Is this a current diagnosis for this admission?: Yes Summary: From the stage IV cancer (2) Abdominal pain Is this a current diagnosis for this admission?: Yes (3) Metastatic lung cancer (metastasis from lung to other site) Is this a current diagnosis for this admission?: Yes (4) Pneumonia Is this a current diagnosis for this admission?: Yes - Additional Information Resuscitation Status: Do Not Resuscitate Home Medications: Albuterol Sulfate [Proair HFA Inhalation Aerosol 8.5 gm MDI] 2 puff IH Q6HP PRN 07/28/17 Alprazolam [Xanax 0.5 mg Tablet] 0.5 mg PO Q12 07/28/17 Cyclobenzaprine HCl [Flexeril 5 mg Tablet] 5 mg PO DAILY 07/28/17 Dronabinol [Marinol] 5 mg PO TID 07/28/17 Lubiprostone [Amitiza] 24 mcg PO Q12 07/28/17 Ondansetron HCl [Zofran 8 mg Tablet] 8 mg PO Q8HP PRN 07/28/17 Oxycodone HCl 20 mg PO Q3HP PRN 07/28/17 Oxycodone HCl [Oxycontin] 30 mg PO Q8 07/28/17 Pantoprazole Sodium [Protonix] 20 mg PO DAILY 07/28/17 Promethazine HCl [Phenergan 25 mg Tablet] 25 mg PO Q6HP PRN 07/28/17 History of Present Illness History of Present Illness: KB IBANEZ is a 52 year old female pt is dx with stage 4 lung cancer and met to bone and liver send to er by onclogy due to uncontrol bone pain pt is c/o back pain/knee pain pt had ct scan done last wk and all worsening diseses pt also had mri done of head pt denied any chest pain no sob pt also have constipation issue due to pain med pt schd for immuno rx this wk per oncology pt is crying due to all pain all over body Hospital Course Hospital Course: This 52-year-old female is present in the ER with the complaining of all over body pain severe bone pain with the stage IV metastatic breast cancers and patient seen by the oncologist and very extensive discussions with the patient and the and patient's discharge home with the hospice care Physical Exam Vital Signs: Temp Pulse Resp BP Pulse Ox 97.9 F 121 H 16 122/76 95 07/30/17 15:06 07/30/17 15:06 07/30/17 15:06 07/30/17 11:14 07/30/17 15:06 General appearance: PRESENT: no acute distress, disheveled Head exam: PRESENT: atraumatic, normocephalic Eye exam: PRESENT: conjunctiva pink, EOMI, PERRLA. ABSENT: scleral icterus Ear exam: PRESENT: normal external ear exam Mouth exam: PRESENT: moist, tongue midline Neck exam: PRESENT: full ROM. ABSENT: carotid bruit, JVD, lymphadenopathy, thyromegaly Respiratory exam: PRESENT: clear to auscultation debra Cardiovascular exam: PRESENT: RRR. ABSENT: diastolic murmur, rubs, systolic murmur Pulses: PRESENT: normal dorsalis pedis pul, +2 pedal pulses bilateral Vascular exam: PRESENT: normal capillary refill GI/Abdominal exam: PRESENT: normal bowel sounds, soft. ABSENT: distended, guarding, mass, organolmegaly, rebound, tenderness Rectal exam: PRESENT: deferred Extremities exam: ABSENT: pedal edema Neurological exam: PRESENT: alert, awake, oriented to person, oriented to place , oriented to time, oriented to situation, CN II-XII grossly intact. ABSENT: motor sensory deficit Psychiatric exam: PRESENT: appropriate affect, normal mood. ABSENT: homicidal ideation, suicidal ideation Skin exam: PRESENT: dry, intact, warm. ABSENT: cyanosis, rash Results Laboratory Results: 07/30/17 06:55 07/30/17 06:55 Impressions: Acute Abdomen Series 07/28/17 16:08 IMPRESSION: Increasing patchy areas of pulmonary density bilaterally. Nonobstructive bowel pattern. Enlarged liver. Metastasis previously demonstrated. Blastic bony changes. Abdomen/Pelvis CT 07/28/17 17:42 IMPRESSION: 1. Progressing right upper lobe volume loss and areas of focal soft tissue/ airspace opacity when compared to June. There are also numerous diffuse bilateral ground-glass infiltrates which have developed. 2. Diffuse osseous metastatic disease. 3. Progressive liver metastatic lesions, increasing in size and number. Chest CT 07/28/17 17:42 IMPRESSION: 1. Progressing right upper lobe volume loss and areas of focal soft tissue/ airspace opacity when compared to June. There are also numerous diffuse bilateral ground-glass infiltrates which have developed. 2. Diffuse osseous metastatic disease. 3. Progressive liver metastatic lesions, increasing in size and number. Qualifiers - * PATEINT BEING DISCHARGED WITH ANY OF THE FOLLOWING DIAGNOSIS?: No VTE patient discharged on overlapping Therapy?: Yes Plan Time Spent: Greater than 30 Minutes - Patient's discharge with the hospice care
== END 2017-07-30 15:37 | disposition hospice, home (50) | DRG 947 ==
LOC: ER 15:22 → EH 17:59 → 3S 20:07
PROVIDERS: ADMIT Family Medicine; ATTEND Family Medicine
PROC: 3E0F73Z Introduction of Anti-inflammatory into Respiratory Tract, Via Natural or Artificial Opening (ICD-10-PCS; principal; 2017-07-29)
DX: G89.3 Neoplasm related pain (acute) (chronic) (principal); J18.1 Lobar pneumonia, unspecified organism; C34.91 Malignant neoplasm of unspecified part of right bronchus or lung; C79.51 Secondary malignant neoplasm of bone; C78.7 Secondary malignant neoplasm of liver and intrahepatic bile duct; K21.9 Gastro-esophageal reflux disease without esophagitis; Z66 Do not resuscitate; F17.210 Nicotine dependence, cigarettes, uncomplicated; F41.9 Anxiety disorder, unspecified; F32.9 Major depressive disorder, single episode, unspecified; K59.03 Drug induced constipation; T40.605A Adverse effect of unspecified narcotics, initial encounter; Z90.710 Acquired absence of both cervix and uterus; Z79.899 Other long term (current) drug therapy; Z88.0 Allergy status to penicillin
CPT/HCPCS: 36415; 71260; 74022; 74177; 80048; 80053; 81001; 83690; 85025; 87040; 87086; 94640; 96374; 96375; 99285; A9270-GY; J0456; J0696; J1170; J1650; J1956; J2060; J2405; J3010; J3490; J7030; J7060; J7620; J8499; S0028